=== PATIENT | male | born 1980 | race African-American/Black ===

== ENCOUNTER 2019-03-09 15:04 | Observation (INO) | payer OTHER ==
[~2019-03-09 15:04] MED LIST: Dexamethasone 20 MG/5 ML VIAL ONE; Labetalol HCl 100 MG/20 ML VIAL ONE; Lidocaine 1% PF 5 ML VIAL ONE; Ondansetron PF 4 MG/2 ML Vial ONE; PROPOFOL 200 MG/20 ML VIAL ONE; Rocuronium Bromide 10 MG/ML (10ML VIAL) ONE; Succinylcholine Chloride 20 MG/ML 10 ml SYRINGE FS ONE
[2019-03-09 15:52] LABS: #Eosinphils 0.1 thou/uL (0.0-0.7); #Lymphocytes 1.4 thou/uL (1.20-3.40); #Monocytes 0.7 thou/uL (0.11-0.59); #Neutrophils 3.4 thou/uL (1.40-6.50); %Basophils 0.5 % (0.0-1.0); %Eosinophils 2.1 % (0.0-10.0); %Lymphocytes 24.5 % (21.0-51.0); %Monocytes 11.7 % (0.0-10.0); %Neutrophils 61.3 % (42.0-75.0); Hemoglobin 13.7 g/dL (14.0-18.0); Mean Corpuscular HGB CONC 33.3 g/dL (32.0-36.0); Mean Corpuscular Hemoglobin 30.5 pg (27.0-31.0); Mean Corpuscular Volume 91.8 fL (78.0-98.0); Mean Platelet Volume 7.4 fL (7.4-10.4); Platelet Count 180 thou/uL (130-400); Red Blood Cell (RBC) Count 4.48 mill/uL (4.70-6.10); White Blood Cell (WBC) Count 5.5 thou/uL (4.8-10.8)
--- NOTE | 2019-03-09 15:52 | RAD ---
ABDOMEN ONE VIEW HISTORY: swallowed a nail. Vomiting bright red blood FINDINGS: The bowel gas pattern is unremarkable. There is fecal material in the colon. A screw is seen in the left upper quadrant, in the projection of the stomach.
[2019-03-09 16:14] LABS: ALT (SGPT) 11 U/L (8-55); AST (SGOT) 22 U/L (5-34); Albumin 4.4 g/dL (3.5-5.0); Alkaline Phosphatase 71 U/L (40-150); Anion Gap 12 mmol/L (10-20); BUN (Urea Nitrogen) 11 mg/dL (8.9-20.6); Bilirubin, Total 0.3 mg/dL (0.2-1.2); Calc. Creatinine Clearance 0 mL/min (70-130); Calcium 9.5 mg/dL (7.8-10.44); Carbon Dioxide 27 mmol/L (22-29); Chloride 105 mmol/L (98-107); Estimated GFR-MDRD 90; Globulin 3.5 g/dL (2.4-3.5); Glucose 90 mg/dL (70-105); Potassium 4.8 mmol/L (3.5-5.1); Protein, Total 7.9 g/dL (6.0-8.3); Sodium 139 mmol/L (136-145)
[2019-03-09] MEDS ORDERED: Labetalol HCl 100 MG/20 ML VIAL ONE (18:21)
[2019-03-09] MEDS ORDERED: Ondansetron HCl/PF 4 MG/2 ML Vial IVP PRN (19:09)
[2019-03-09] MEDS ORDERED: Promethazine HCl 25 MG/ML VIAL SLOW IVP PRN (19:09)
[2019-03-09] MEDS ORDERED: Promethazine HCl 25 MG/ML VIAL IM PRN (19:09)
[2019-03-09] MEDS ORDERED: Meperidine HCl/PF 25 MG/ML VIAL SLOW IVP PRN (19:09)
[2019-03-09] MEDS ORDERED: Ondansetron PF 4 MG/2 ML Vial ONE (19:33)
[2019-03-09 20:55] VITALS: BMI 23.8
[2019-03-09] MEDS ORDERED: Morphine 2 MG/ML SYRINGE SLOW IVP SCH (22:00)
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
--- NOTE | 2019-03-10 01:51 | OP ---
DATE OF PROCEDURE: 03/09/2019 PROCEDURE: EGD with extraction of foreign body. INDICATION FOR PROCEDURE: Ingestion of foreign body. DESCRIPTION OF PROCEDURE: After the risks and benefits of the procedure were explained to the patient including risks of bleeding, infection, perforation, reactions to anesthesia, aspiration, and/or pain, informed consent was obtained. The patient was then taken to the endoscopy suite, where deep sedation was administered via general anesthesia and endotracheal tube intubation. Once the patient was adequately sedated and intubated, the standard gastroscope was introduced into the mouth with intubation of the esophagus, stomach, and the proximal small intestines with the findings listed below. The patient tolerated the procedure well with no immediate perioperative complications. Upon conclusion of the procedure, all equipment was removed from the patient and he was transferred to PACU in satisfactory condition. FINDINGS: Esophagus: Normal-appearing mucosa was seen in the proximal, mid, and distal esophagus. There was no evidence of erosions, ulcerations, mass, lesions, or active/recent bleeding. After extraction of the "nail," there was no evidence of laceration of the esophageal mucosa on second-look inspection. Stomach: A moderate amount of retained food was seen within the stomach within the gastric fundus and proximal body thereby limiting visualization of the gastric mucosa. With deployment of a Zavala Net removal of the majority of the food debris was successful and was able to unearth the nail using a small snare after placing a protective martínez over the endoscope. The endoscope was advanced into the stomach with grasping the nail at the head, pulling it next to the scope and with extraction of the endoscope at the GE junction, the martínez employed forward thereby protecting the esophagus upon extraction. The nail was then successfully extracted to the esophagus without subsequent injury. Upon inspection of the nail afterwards, it was consistent of primarily a copper wire as opposed to a true nail itself. Reinspection of the stomach on re-intubation showed 3-4 areas of small lacerations with blood clot overlying, but did not exhibit any active bleeding. Otherwise, normal mucosa was seen in the gastric cardia, greater curvature, antrum, and incisura. There was no evidence of ulcerations or mass lesions. Normal-appearing mucosa was seen in both the duodenal bulb and second portion of the duodenum. There was no evidence of erosions, ulcerations, mass, lesions, or active/recent bleeding. IMPRESSION: 1. A cise-vg-loexgjsy amount of retained food seen within the gastric fundus. It was successfully removed with Zavala Net. 2. Successful extraction of a copper wire "nail" via snare and protective martínez. 3. Two to three areas of laceration of the gastric mucosa with no active bleeding, but likely a source of recent hematemesis. RECOMMENDATIONS: 1. We would admit to the hospital overnight for observation for any further bouts of hematemesis and/or GI bleeding. 2. We would continue to trend H and H and transfuse as necessary to maintain an H and H of 7/21. 3. Continue to monitor clinically for signs of active GI bleeding. 4. We would place the patient on pantoprazole 40 mg daily as a protective measure for healing of the stomach given the laceration seen on upper exam today. We will place the patient on a clear liquid diet for now and advance diet as tolerated in the morning. 1. We would strongly encourage the patient not to ingest any additional foreign bodies. 2. We will continue to follow. If the patient's H and H are stable tomorrow and if he does not exhibit any further episodes of hematemesis, he could then be discharged back to longterm. Please call with any additional questions. Job ID: [id number]
[2019-03-10] MEDS ORDERED: Morphine 2 MG/ML SYRINGE SLOW IVP SCH (04:15)
[2019-03-10 08:42] LABS: #Eosinphils 0.1 thou/uL (0.0-0.7); #Lymphocytes 1.6 thou/uL (1.20-3.40); #Monocytes 0.6 thou/uL (0.11-0.59); #Neutrophils 3.1 thou/uL (1.40-6.50); %Basophils 0.4 % (0.0-1.0); %Eosinophils 1.1 % (0.0-10.0); %Lymphocytes 29.7 % (21.0-51.0); %Monocytes 11.8 % (0.0-10.0); Hemoglobin 13.9 g/dL (14.0-18.0); Mean Corpuscular HGB CONC 33.3 g/dL (32.0-36.0); Mean Corpuscular Hemoglobin 30.5 pg (27.0-31.0); Mean Corpuscular Volume 91.6 fL (78.0-98.0); Mean Platelet Volume 7.5 fL (7.4-10.4); Platelet Count 177 thou/uL (130-400); Red Blood Cell (RBC) Count 4.56 mill/uL (4.70-6.10); White Blood Cell (WBC) Count 5.4 thou/uL (4.8-10.8)
[2019-03-10] MEDS ORDERED: risperiDONE 1 MG TAB PO SCH (09:00)
[2019-03-10] MEDS ORDERED: Spironolactone 25 MG TAB PO SCH (09:00)
[2019-03-10] MEDS ORDERED: Amlodipine 10 MG TAB PO SCH (09:00)
[2019-03-10] MEDS ORDERED: Morphine 2 MG/ML SYRINGE SLOW IVP PRN (09:22)
[2019-03-10 11:05] VITALS: BP 133/91; TEMP 99.1
--- NOTE | 2019-03-10 11:43 | PDOC.EVN ---
Event Note - Event Note Event Note: Consult note dictation #[id number] Patient is medically cleared for discharge, medicine team respectfully signing off, please recall if needed.
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
[2019-03-10] MEDS ORDERED: Prazosin HCl 1 MG CAP PO SCH (21:00)
[2019-03-10] MEDS ORDERED: diphenhydrAMINE 50 MG CAP PO SCH (21:00)
[2019-03-10] MEDS ORDERED: Emtricitabine/Tenofovir 200-300 MG TAB PO SCH (21:00)
== END 2019-03-10 14:16 ==
LOC: ERS 15:04 → SURG B 20:09
PROVIDERS: ADMIT Internal Medicine; ATTEND Internal Medicine
PROC: 0DC58ZZ Extirpation of Matter from Esophagus, Via Natural or Artificial Opening Endoscopic (ICD-10-PCS; principal; 2019-03-10)
DX: T18.198A Other foreign object in esophagus causing other injury, initial encounter (principal); K92.0 Hematemesis; K21.9 Gastro-esophageal reflux disease without esophagitis; I10 Essential (primary) hypertension; F20.9 Schizophrenia, unspecified; F31.9 Bipolar disorder, unspecified; Z88.8 Allergy status to other drugs, medicaments and biological substances
CPT/HCPCS: 36415; 74018; 80053; 82274; 85025; 86850; 86900; 86901; 96374; 96376; G0378; J1100; J2001; J2270; J2405; J2704

== ENCOUNTER 2019-03-13 15:52 | Inpatient (IN) | payer OTHER ==
--- NOTE | 2019-03-13 17:20 | RAD ---
EXAM: XR Abdomen 2 View/1 View Cxr PROVIDED CLINICAL HISTORY: Nausea and vomiting. Patient swallowed scrap metal/screws. COMPARISON: Abdominal radiograph on 03/09/2019. FINDINGS: The cardiac silhouette and pulmonary vasculature are within normal limits. The lungs are clear. No free intraperitoneal air is seen beneath the hemidiaphragms. Previously seen linear metallic forei gn body (screw) overlying the mid abdomen is again seen. However, there is now a new rectangular shaped metallic foreign body also overlying the midline of the abdomen. There is questionable radio o paque suture material overlying the left upper quadrant. A sopps-te-hbunrfbt amount of retained fecal material is seen throughout the colon. Bowel gas pattern is otherwise nonspecific. No other interval change. IMPRESSION: Metallic foreign bodies overlying the mid abdomen one of which was also present on prior study on 02/24.
[2019-03-13] MEDS ORDERED: Morphine 4 MG/ML VIAL ONE (17:28)
[2019-03-13] MEDS ORDERED: Ondansetron ODT 4 MG TAB ONE (17:28)
--- NOTE | 2019-03-13 17:51 | CT ---
CT Abdomen Pelvis WO Con 03/13/2019 5:25 PM HISTORY: Abdominal pain. Patient swallowed metallic foreign body. COMPARISON: Radiographs abdomen on 03/13/2019. Technique: Multiple contiguous axial CT images are obtained through the abdomen and pelvis without IV contrast. Coronal reformats are provided. FINDINGS: This examination is limited for the evaluation of solid organs and vascular structures due to the lac k of intravenous contrast. Lower Chest: Mild patchy parenchymal density seen at the right lung base worrisome for developing are a of pneumonitis. Abdomen: Liver: within normal limits. Gallbladder: Within normal limits for CT imaging. Pancreas: within normal limits. Spleen: within normal limits. Adrenals: within normal limits. Kidneys: No renal calculi are visualized, and there is no evidence of hydronephrosis. Ureters: No ureteral calculus is seen.. Pelvis: Urinary bladder: within normal limits. Reproductive Organs: No pelvic masses. Lymph Nodes: No enlarged lymph nodes. Bowel: There are postsurgical changes of the colon as well as loops of small bowel within the abdomen . A moderate amount of retained fecal material is seen in the colon. There are 2 metallic foreign bodies in the third portion of the duodenum one of which appears to represent a screw and second repr esenting a rectangular metallic foreign body. Peritoneum: No free fluid, free air, or fluid collection. Retroperitoneum: within normal limits. Vessels: Abdominal aorta is normal in caliber.. Abdominal Wall: within normal limits. Bones: within normal limits. IMPRESSION: 1. Two metallic foreign bodies located in the third portion of the duodenum. No free intraperitoneal gas or free fluid is seen in the abdomen or pelvis. 2. Postsurgical changes of loops of bowel within the abdomen.
[2019-03-13 18:08] LABS: #Eosinphils 0.1 thou/uL (0.0-0.7); #Lymphocytes 1.4 thou/uL (1.20-3.40); #Monocytes 0.7 thou/uL (0.11-0.59); %Basophils 0.7 % (0.0-1.0); %Eosinophils 1.6 % (0.0-10.0); %Lymphocytes 27.8 % (21.0-51.0); %Monocytes 12.5 % (0.0-10.0); %Neutrophils 57.4 % (42.0-75.0); Hemoglobin 12.5 g/dL (14.0-18.0); Mean Corpuscular HGB CONC 32.7 g/dL (32.0-36.0); Mean Corpuscular Volume 91.8 fL (78.0-98.0); Mean Platelet Volume 7.5 fL (7.4-10.4); Platelet Count 155 thou/uL (130-400); Red Blood Cell (RBC) Count 4.16 mill/uL (4.70-6.10); White Blood Cell (WBC) Count 5.2 thou/uL (4.8-10.8)
[2019-03-13 18:29] LABS: ALT (SGPT) 11 U/L (8-55); AST (SGOT) 20 U/L (5-34); Albumin 4.4 g/dL (3.5-5.0); Alkaline Phosphatase 68 U/L (40-150); Anion Gap 10 mmol/L (10-20); BUN (Urea Nitrogen) 12 mg/dL (8.9-20.6); Bilirubin, Total 0.4 mg/dL (0.2-1.2); Calc. Creatinine Clearance 0 mL/min (70-130); Calcium 9.5 mg/dL (7.8-10.44); Carbon Dioxide 26 mmol/L (22-29); Chloride 105 mmol/L (98-107); Estimated GFR-MDRD Greater than 90; Globulin 3.1 g/dL (2.4-3.5); Glucose 86 mg/dL (70-105); Lipase 46 U/L (8-78); Potassium 4.2 mmol/L (3.5-5.1); Protein, Total 7.5 g/dL (6.0-8.3); Sodium 137 mmol/L (136-145)
[2019-03-13] MEDS ORDERED: Pantoprazole 40 MG VIAL ONE (19:55)
[2019-03-13 21:53] VITALS: BMI 26.2
[2019-03-13] MEDS ORDERED: Sodium Chloride 0.9% (PF) 10 ML VIAL FS PRN (23:02)
[2019-03-13] MEDS: Lactated Ringer's 1,000 ML IV SCH (23:48)
[2019-03-13] MEDS: Ondansetron PF 4 MG/2 ML Vial IVP PRN (23:52)
[2019-03-13] MEDS: Morphine 2 MG/ML SYRINGE SLOW IVP PRN (23:52)
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
[2019-03-14 05:50] LABS: #Eosinphils 0.1 thou/uL (0.0-0.7); #Monocytes 0.6 thou/uL (0.11-0.59); #Neutrophils 3.2 thou/uL (1.40-6.50); %Basophils 0.6 % (0.0-1.0); %Eosinophils 1.8 % (0.0-10.0); %Lymphocytes 20.5 % (21.0-51.0); %Monocytes 11.2 % (0.0-10.0); Hemoglobin 12.9 g/dL (14.0-18.0); Mean Corpuscular HGB CONC 33.2 g/dL (32.0-36.0); Mean Corpuscular Hemoglobin 30.2 pg (27.0-31.0); Mean Corpuscular Volume 91.1 fL (78.0-98.0); Mean Platelet Volume 7.9 fL (7.4-10.4); Platelet Count 165 thou/uL (130-400); RBC Distribution Width 11.9 % (11.5-14.5); Red Blood Cell (RBC) Count 4.25 mill/uL (4.70-6.10); White Blood Cell (WBC) Count 4.9 thou/uL (4.8-10.8)
[2019-03-14 06:13] LABS: Anion Gap 12 mmol/L (10-20); BUN (Urea Nitrogen) 11 mg/dL (8.9-20.6); Calc. Creatinine Clearance 122 mL/min (70-130); Calcium 9.2 mg/dL (7.8-10.44); Carbon Dioxide 24 mmol/L (22-29); Chloride 105 mmol/L (98-107); Estimated GFR-MDRD Greater than 90; Glucose 78 mg/dL (70-105); Potassium 4.1 mmol/L (3.5-5.1); Sodium 137 mmol/L (136-145)
[2019-03-14] MEDS ORDERED: hydrALAZINE 20 MG/ML VIAL SLOW IVP PRN (07:46)
[2019-03-14] MEDS: Amlodipine 5 MG TAB PO SCH ×2 (08:33→10:37)
[2019-03-14] MEDS: risperiDONE 1 MG TAB PO SCH ×2 (08:33→10:37)
[2019-03-14] MEDS: Morphine 2 MG/ML SYRINGE SLOW IVP PRN ×2 (08:36→15:18)
[2019-03-14] MEDS: Pantoprazole 40 MG VIAL IVP SCH (08:38)
--- NOTE | 2019-03-14 08:50 | RAD ---
RADIOGRAPH ABDOMEN 1 VIEW: DATE: 03/14/2019. TIME: 8:03 a.m. HISTORY: Followup swallowed foreign bodies in a 39-year-old male. COMPARISON: 03/13/2019, 5:07 p.m. FINDINGS: The rectangular foreign body is now slightly to the right of midline in the upper abdomen. Inferior to that, the screw or nail is also slightly to the right of midline at the mid abdomen. Bowel gas pa ttern is nonobstructive. They were in the small intestine yesterday, as demonstrated on the subseque nt CT. It is not possible to determine whether they are still in the small intestine or have progres sed to the transverse colon on today's single KUB. IMPRESSION: Interval movement of the 2 swallowed metallic foreign bodies. POS: TPC
[2019-03-14] MEDS: Lactated Ringer's 1,000 ML IV SCH (13:32)
[2019-03-14] MEDS: Ondansetron PF 4 MG/2 ML Vial IVP PRN (13:32)
--- NOTE | 2019-03-14 16:30 | PDOC.PN ---
- Subjective Encounter Start Date: 03/14/19 Encounter Start Time: 16:27 Mr. Ambrocio was seen today in follow-up of ingestion of foreign object. He admits to some abdominal pain which he says is diffuse. He denies any blood in the stool, no hematemesis since he arrived on the floor. - Objective MAR Reviewed: Yes Vital Signs & Weight: Vital Signs (12 hours) Temp Pulse Resp BP Pulse Ox 03/14/19 11:36 97.8 F 78 14 128/87 97 03/14/19 10:37 62 03/14/19 07:55 97.8 F 62 14 135/86 98 Weight Weight 172 lb 12.8 oz Result Diagrams: 03/14/19 04:54 03/14/19 04:54 Phys Exam - Physical Examination HEENT: PERRLA Respiratory: no wheezing, no rales, no rhonchi, clear to auscultation bilateral Cardiovascular: RRR, no significant murmur, no rub Gastrointestinal: soft, non-tender, no distention, positive bowel sounds Musculoskeletal: no edema, pulses present Dx/Plan (1) Swallowed foreign body Code(s): T18.9XXA - FOREIGN BODY OF ALIMENTARY TRACT, PART UNSP, INIT ENCNTR Status: Acute (2) HIV (human immunodeficiency virus infection) Code(s): B20 - HUMAN IMMUNODEFICIENCY VIRUS [HIV] DISEASE Status: Chronic (3) Bipolar disorder Code(s): F31.9 - BIPOLAR DISORDER, UNSPECIFIED Status: Chronic - Plan * Foreign Body ingestion - He has been seen by GI, and the objects had passed beyond the point of reaching it with a endoscope * Will check serial KUB's and hope it will pass spontaneously * If there is evidence of perforation- will consult General Surgery.
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
[2019-03-14] MEDS ORDERED: Morphine 2 MG/ML SYRINGE ONE (22:28)
[2019-03-15] MEDS: Emtricitabine/Tenofovir 200-300 MG TAB PO SCH ×2 (09:30→22:08)
[2019-03-15] MEDS: diphenhydrAMINE 50 MG CAP PO SCH ×2 (09:30→22:08)
[2019-03-15] MEDS: Prazosin HCl 1 MG CAP PO SCH ×2 (09:31→22:08)
[2019-03-15] MEDS: Pantoprazole 40 MG VIAL IVP SCH ×3 (09:31→22:08)
[2019-03-15] MEDS: Amlodipine 5 MG TAB PO SCH (09:32)
[2019-03-15] MEDS: Lactated Ringer's 1,000 ML IV SCH ×2 (09:32→16:31)
[2019-03-15] MEDS: risperiDONE 1 MG TAB PO SCH (09:33)
[2019-03-15 10:25] LABS: %Eosinophils 2.7 % (0.0-10.0); %Lymphocytes 32.8 % (21.0-51.0); %Monocytes 10.6 % (0.0-10.0); %Neutrophils 52.8 % (42.0-75.0); Hemoglobin 12.9 g/dL (14.0-18.0); Mean Corpuscular HGB CONC 32.4 g/dL (32.0-36.0); Mean Corpuscular Hemoglobin 29.9 pg (27.0-31.0); Mean Corpuscular Volume 92.2 fL (78.0-98.0); Mean Platelet Volume 8.1 fL (7.4-10.4); Platelet Count 164 thou/uL (130-400); Red Blood Cell (RBC) Count 4.32 mill/uL (4.70-6.10)
[2019-03-15 10:26] LABS: #Eosinphils 0.1 thou/uL (0.0-0.7); #Lymphocytes 1.3 thou/uL (1.20-3.40); #Monocytes 0.4 thou/uL (0.11-0.59); #Neutrophils 2.1 thou/uL (1.40-6.50)
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
--- NOTE | 2019-03-15 11:52 | RAD ---
KUB: HISTORY: Swallowed foreign bodies. COMPARISON: 03/14/2019 FINDINGS: An anterior view of the abdomen shows a nonspecific, nonobstructive bowel gas pattern. Two radiopaqu e foreign bodies are seen in the right aspect of the abdomen. These have moved when compared to the prior examination. IMPRESSION: Persistent radiopaque foreign bodies in the abdomen without evidence of obstruction. POS: TPC
--- NOTE | 2019-03-15 12:06 | PDOC.PN ---
- Subjective Encounter Start Date: 03/15/19 Encounter Start Time: 12:04 Mr. Ambrocio was seen today in follow-up of foreign body ingestion. He admits tosome abdominal discomfort. He denies any hematemesis, and denies blood in the stool or melena. - Objective MAR Reviewed: Yes Vital Signs & Weight: Vital Signs (12 hours) Temp Pulse Resp BP Pulse Ox 03/15/19 11:38 97.6 F 68 16 117/73 97 03/15/19 09:32 70 03/15/19 08:00 98.1 F 59 L 16 115/74 98 Weight Weight 172 lb 12.8 oz I&O: 03/14/19 03/15/19 03/16/19 06:59 06:59 06:59 Intake Total 900 Output Total 850 600 Balance 50 -600 Result Diagrams: 03/15/19 04:33 03/14/19 04:54 Phys Exam - Physical Examination HEENT: PERRLA Respiratory: no wheezing, no rales, no rhonchi, clear to auscultation bilateral Cardiovascular: RRR, no significant murmur, no rub Gastrointestinal: soft, non-tender, no distention, positive bowel sounds Musculoskeletal: no edema, pulses present Dx/Plan (1) Swallowed foreign body Code(s): T18.9XXA - FOREIGN BODY OF ALIMENTARY TRACT, PART UNSP, INIT ENCNTR Status: Acute (2) HIV (human immunodeficiency virus infection) Code(s): B20 - HUMAN IMMUNODEFICIENCY VIRUS [HIV] DISEASE Status: Chronic (3) Bipolar disorder Code(s): F31.9 - BIPOLAR DISORDER, UNSPECIFIED Status: Chronic (4) Hypertension Code(s): I10 - ESSENTIAL (PRIMARY) HYPERTENSION Status: Chronic - Plan * Foreign Body ingestion- continue to observe. Hopefully this will pass without need for intervention * Continue Protonix * HIV- stable continue TAPIA. * HTN- blood pressure is controlled * Bipolar Disorder- stable- continue his home medications
[2019-03-15] MEDS: HYDROcodone/Acetaminophen 5/325 mg Tablet PO PRN (14:08)
[2019-03-15] MEDS ORDERED: diphenhydrAMINE 25 MG CAP PO PRN (15:03)
[2019-03-15 18:32] LABS: Anion Gap 11 mmol/L (10-20); BUN (Urea Nitrogen) 10 mg/dL (8.9-20.6); Calc. Creatinine Clearance 125 mL/min (70-130); Calcium 8.9 mg/dL (7.8-10.44); Carbon Dioxide 24 mmol/L (22-29); Chloride 106 mmol/L (98-107); Estimated GFR-MDRD Greater than 90; Glucose 86 mg/dL (70-105); Potassium 3.9 mmol/L (3.5-5.1); Sodium 137 mmol/L (136-145)
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
[2019-03-16] MEDS: HYDROcodone/Acetaminophen 5/325 mg Tablet PO PRN ×2 (00:12→16:16)
[2019-03-16 05:15] LABS: Eosinophils 4 % (0-10); Hemoglobin 12.8 g/dL (14.0-18.0); Lymphocytes 31 % (21-51); MDiff Complete? YES; Mean Corpuscular HGB CONC 32.8 g/dL (32.0-36.0); Mean Corpuscular Hemoglobin 30.3 pg (27.0-31.0); Mean Corpuscular Volume 92.4 fL (78.0-98.0); Mean Platelet Volume 7.6 fL (7.4-10.4); Monocytes 8 % (0-10); Neutrophil 53 % (42-75); Platelet Count 155 thou/uL (130-400); Reactive Lymphocytes 4 % (0-10); Red Blood Cell (RBC) Count 4.21 mill/uL (4.70-6.10); White Blood Cell (WBC) Count 4.4 thou/uL (4.8-10.8)
--- NOTE | 2019-03-16 08:16 | RAD ---
EXAM: Single view of the abdomen HISTORY: Ingested foreign bodies COMPARISON: 03/15/2019 FINDINGS: Single view of the abdomen shows a nonspecific, nonobstructive bowel gas pattern. 2 foreign bodies are again seen in the abdomen. The sharper object is still in the right lower quadrant of the abdomen. The rectangular object is now in the pelvis. No suspicious calcifications are seen. Th e bones are unremarkable. IMPRESSION: Persistent radiopaque foreign bodies in the abdomen without evidence of obstruction.
[2019-03-16] MEDS: risperiDONE 1 MG TAB PO SCH (08:39)
[2019-03-16] MEDS: Pantoprazole 40 MG VIAL IVP SCH ×2 (08:39→20:19)
[2019-03-16] MEDS: Amlodipine 5 MG TAB PO SCH (08:39)
--- NOTE | 2019-03-16 16:14 | PDOC.PN ---
- Subjective Encounter Start Date: 03/16/19 Encounter Start Time: 12:05 Mr. Ambrocio was seen today in follow-up of ingestion of a foreign body. He continues to note some diffuse abdominal pain. He has not had nausea , vomiting or diarrhea. - Objective MAR Reviewed: Yes Vital Signs & Weight: Vital Signs (12 hours) Temp Pulse Resp BP BP Pulse Ox 03/16/19 15:46 98.5 F 66 16 118/80 97 03/16/19 11:45 97.9 F 84 18 122/85 97 03/16/19 08:39 73 03/16/19 07:32 97.4 F L 73 16 132/93 H 96 03/16/19 04:17 68 18 118/61 97 Weight Weight 172 lb 12.8 oz I&O: 03/15/19 03/16/19 03/17/19 06:59 06:59 06:59 Intake Total 900 600 Output Total 850 1800 1000 Balance 50 -1200 -1000 Result Diagrams: 03/16/19 04:26 03/15/19 04:20 Phys Exam - Physical Examination HEENT: PERRLA Respiratory: no wheezing, no rales, no rhonchi, clear to auscultation bilateral Cardiovascular: RRR, no significant murmur, no rub Gastrointestinal: soft, non-tender, no distention, positive bowel sounds Musculoskeletal: no edema, pulses present Dx/Plan (1) Swallowed foreign body Code(s): T18.9XXA - FOREIGN BODY OF ALIMENTARY TRACT, PART UNSP, INIT ENCNTR Status: Acute (2) HIV (human immunodeficiency virus infection) Code(s): B20 - HUMAN IMMUNODEFICIENCY VIRUS [HIV] DISEASE Status: Chronic (3) Bipolar disorder Code(s): F31.9 - BIPOLAR DISORDER, UNSPECIFIED Status: Chronic (4) Hypertension Code(s): I10 - ESSENTIAL (PRIMARY) HYPERTENSION Status: Chronic - Plan * Foreign Body ingestion- patient ingested a piece of copper wire, fashioned into a make-shift screw, as well as a metal plate. * Objects were not retrievable via Endoscopy * Hopefully these will pass spontaneously. Watch for signs of perforation, and GI bleed with drop in H&H- if this occurs then consult Surgery * HTN- blood pressure is stable * HIV- stable
[2019-03-16] MEDS: Ondansetron PF 4 MG/2 ML Vial IVP PRN (16:57)
[2019-03-16] MEDS: Morphine 2 MG/ML SYRINGE SLOW IVP PRN ×2 (17:02→22:56)
--- NOTE | 2019-03-16 17:25 | PDOC.EVN ---
Event Note - Event Note Event Note: Called to evaluate patient due to vomiting blood. He notes worsening abdominal pain. Abdomen is firm, but not rigid. bowel sounds are present. Objects appear too low to cause hematesis. Will check a KUB flat and upright, and H&H, and notify GI. Object appear too low to cause hematesis.
--- NOTE | 2019-03-16 18:05 | RAD ---
XR Abdomen 2 View/1 View Cxr History: Vomiting blood. Ingested foreign object. Comparison: Radiograph same day Findings: Radiopaque foreign objects are both projecting over the right lower quadrant of the abdomen . Moderate colon stool within the transverse colon. Moderate degenerative changes of both hips. Lungs are clear aside from left apical scarring. Impression: Radiopaque foreign object project over the right lower quadrant of the abdomen.
[2019-03-16 18:40] LABS: Hemoglobin 13.6 g/dL (14.0-18.0); Platelet Count 161 thou/uL (130-400)
--- NOTE | 2019-03-16 20:11 | PRG ---
DATE OF SERVICE: 03/16/2019 SUBJECTIVE: I was asked to see Mr. Ambrocio by Dr. Sharma around 0530 hours. Apparently, they report he threw up some blood. I talked with the nurse. She said that he threw up some small clots. He denies any retching or vomiting before that. He states he does not feel that well. He reports not been eating, but the nurse reports he has been eating well. He had one bowel movement today. Medications are notable for Norvasc, Bentyl, Truvada, , hydrocodone, morphine, Zofran, Protonix, mirtazapine, Risperdal. OBJECTIVE: VITAL SIGNS: Temperature is 98, pulse 86, blood pressure 118/80. LUNGS: Clear. HEART: Regular rate and rhythm without murmurs. ABDOMEN: Soft, slightly protuberant. There is no rebound. There is no guarding. Bowel sounds are positive. EXTREMITIES: No clubbing, cyanosis, or edema. LABORATORY DATA: White count this morning is 4.4, hemoglobin of 12.8, platelet count 155. At 1820 hours, his hemoglobin is 13.6, platelet count 161. X-ray was repeated to make sure he did not ingest any other foreign bodies. Radiologist felt the foreign body projections were over the right lower quadrant of the abdomen. I reviewed these films. They are probably in the cecal area or distal small bowel, possibly even the sigmoid colon. ASSESSMENT: 1. Self-limited hematemesis, the etiology is unclear. His hemoglobin is stable. It is unclear if he is self-induced vomiting and he has coughed, so he did not like he gagged himself. The nurses and the guards reported that he was not really vomiting before. He is immediately stable. He is on a PPI. 2. Foreign body ingestion. There are 2 objects, may be sharp. They are distal in either small bowel or cecum. Surgeries have been following and signed off. RECOMMENDATIONS: He does not seem to have any acute bleeding or acute abdomen. I would add fiber to his diet and MiraLAX and see if we can get his bowels really better and see if he is going to pass the foreign bodies. If they seem to get into the colon, then he can go back to intermediate, will be monitored with films there. If there are any further signs of hematemesis, he may need NG tube placement. Job ID: [id number]
[2019-03-16] MEDS: Polyethylene Glycol 3350 17 GM Packet PO SCH (20:17)
[2019-03-16] MEDS: diphenhydrAMINE 50 MG CAP PO SCH (20:18)
[2019-03-16] MEDS: Emtricitabine/Tenofovir 200-300 MG TAB PO SCH (20:19)
[2019-03-16] MEDS: Prazosin HCl 1 MG CAP PO SCH (20:19)
[2019-03-17] MEDS: Morphine 2 MG/ML SYRINGE SLOW IVP PRN ×4 (05:04→23:07)
[2019-03-17 05:25] LABS: Band 2 % (5-11); Eosinophils 4 % (0-10); Lymphocytes 29 % (21-51); MDiff Complete? YES; Mean Corpuscular HGB CONC 33.1 g/dL (32.0-36.0); Mean Corpuscular Hemoglobin 30.6 pg (27.0-31.0); Mean Corpuscular Volume 92.7 fL (78.0-98.0); Mean Platelet Volume 7.6 fL (7.4-10.4); Monocytes 11 % (0-10); Neutrophil 50 % (42-75); Platelet Count 151 thou/uL (130-400); Platelet Morphology Comment Appears Adequate; Reactive Lymphocytes 4 % (0-10); Red Blood Cell (RBC) Count 4.23 mill/uL (4.70-6.10)
[2019-03-17] MEDS: risperiDONE 1 MG TAB PO SCH (08:41)
[2019-03-17] MEDS: Amlodipine 5 MG TAB PO SCH (08:41)
[2019-03-17] MEDS: Polyethylene Glycol 3350 17 GM Packet PO SCH ×2 (08:42→20:59)
[2019-03-17] MEDS: Pantoprazole 40 MG VIAL IVP SCH (08:42)
[2019-03-17] MEDS: Citrucel 500 MG TAB PO SCH (08:42)
--- NOTE | 2019-03-17 09:35 | PDOC.PN ---
- Subjective Encounter Start Date: 03/17/19 Encounter Start Time: 09:30 Subjective: f/u s/p intentional ingestion of metallic objects. Conservative mgmt -: awaiting spontaneous passage. Small amount of hematemesis day before. - Objective MAR Reviewed: Yes Vital Signs & Weight: Vital Signs (12 hours) Temp Pulse Resp BP Pulse Ox 03/17/19 08:41 65 03/17/19 07:30 97.9 F 65 12 116/75 97 03/17/19 04:08 98.2 F 89 15 104/71 98 03/16/19 23:25 97.9 F 80 16 118/74 96 Weight Weight 176 lb 1.6 oz I&O: 03/16/19 03/17/19 03/18/19 06:59 06:59 06:59 Intake Total 600 1392 Output Total 1800 1780 Balance -1200 -388 Result Diagrams: 03/17/19 04:25 03/15/19 04:20 Additional Labs: Laboratory Tests 03/13/19 03/14/19 03/15/19 17:59 04:54 04:33 Hgb 12.5 L 12.9 L 12.9 L 03/16/19 03/16/19 04:26 18:20 Hgb 12.8 L 13.6 L Radiology Reviewed by me: Yes (KUB - 2 metallic objects noted RLQ) EKG Reviewed by me: Yes (Tele - SR) Phys Exam - Physical Examination Constitutional: NAD HEENT: PERRLA, sclera anicteric, oral pharynx no lesions Neck: no nodes, no JVD, supple, full ROM Respiratory: no wheezing, no rales, no rhonchi, clear to auscultation bilateral S1, S2 Cardiovascular: RRR, no significant murmur, no rub, gallop mild TTP in R/LLQ Gastrointestinal: soft, no distention, positive bowel sounds Musculoskeletal: no edema, pulses present Neurological: normal sensation, moves all 4 limbs Psychiatric: A&O x 3 Skin: normal turgor, cap refill <2 seconds Dx/Plan (1) Swallowed foreign body Code(s): T18.9XXA - FOREIGN BODY OF ALIMENTARY TRACT, PART UNSP, INIT ENCNTR Status: Acute Comment: Conservative mgmt, awaiting spontaneous passage, serial abd radiographs (2) Hematemesis Code(s): K92.0 - HEMATEMESIS Status: Acute Comment: Transient, ? 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
[2019-03-17] MEDS ORDERED: Docusate 100 MG CAP PO SCH (11:00)
--- NOTE | 2019-03-17 12:10 | PRG ---
DATE OF SERVICE: 03/17/2019 SUBJECTIVE: Mr. Ambrocio has no further hematemesis. He complains of some lower abdominal discomfort. He is eating. He is getting fiber and MiraLAX b.i.d. He had a bowel movement last night . OBJECTIVE: VITAL SIGNS: Temperature is 98.7, pulse 65, and blood pressure 116/75. ABDOMEN: Soft and nontender. There is no rebound or guarding. LABORATORY DATA: White count 5, hemoglobin 13.0 and stable, and platelets 151. Basic metabolic profile are normal. IMAGING DATA: Plain films, none today. ASSESSMENT: 1. Ingestion of foreign body. In yesterday's films, they seemed to be in the low abdomen. It is unclear if they are in small bowel or colon. He has a benign abdomen. No evidence of peritoneal signs. 2. He had an episode of reported hematemesis yesterday, but there has been no drop in hemoglobin and the foreign bodies that are noted are no where near the stomach to cause anything along this. He has no abdominal pain or dysphagia or odynophagia. His vital signs have been stable. RECOMMENDATIONS: I would check a plain film tomorrow. If things still failing to progress, I asked General Surgery for their opinion as they have been following from [facility], and if they do not feel like he needs surgery, then he could go back to the C with serial films and high-fiber diet and laxatives. I think if he did not pass something in a week, then he may have to come back for surgical removal. No endoscopy is indicated at this time. We will follow from a distance. Job ID: [id number]
[2019-03-17] MEDS: Ondansetron PF 4 MG/2 ML Vial IVP PRN (17:10)
[2019-03-17] MEDS: Docusate 100 MG CAP PO SCH (20:58)
[2019-03-17] MEDS: Emtricitabine/Tenofovir 200-300 MG TAB PO SCH (20:58)
[2019-03-17] MEDS: Prazosin HCl 1 MG CAP PO SCH (20:59)
[2019-03-17] MEDS: diphenhydrAMINE 50 MG CAP PO SCH (20:59)
[2019-03-18] MEDS: Morphine 2 MG/ML SYRINGE SLOW IVP PRN ×2 (05:02→11:07)
[2019-03-18 05:27] LABS: Hemoglobin 13.4 g/dL (14.0-18.0); Platelet Count 146 thou/uL (130-400)
[2019-03-18] MEDS: Ondansetron PF 4 MG/2 ML Vial IVP PRN (09:26)
--- NOTE | 2019-03-18 10:38 | RAD ---
EXAM: XR Abdomen 1 View/KUB PROVIDED CLINICAL HISTORY: Swallowed a foreign body. Follow-up evaluation. COMPARISON: 03/16/2019 FINDINGS: The previously described metallic foreign bodies are again seen. One of the metallic foreign bodies (screw) again overlies the right lower quadrant in the region of the ascending colon. There has been interval migration of the rectangular metallic foreign body which is now also seen overlying the right lower quadrant and overlying the ascending colon adjacent to the second metallic foreign body (screw). A small to moderate amount of retained fecal material seen in the colon. Bowel gas pattern is nonspec ific. Visualized lung bases are clear. No free intraperitoneal gas is seen beneath the hemidiaphragms on the upright image. IMPRESSION: 2 metallic foreign bodies are again seen each which overlies the right lower quadrant and region of t he ascending colon.
[2019-03-18] MEDS: Amlodipine 5 MG TAB PO SCH (11:03)
[2019-03-18] MEDS: Polyethylene Glycol 3350 17 GM Packet PO SCH ×2 (11:03→20:54)
[2019-03-18] MEDS: Docusate 100 MG CAP PO SCH ×2 (11:03→20:53)
[2019-03-18] MEDS: Citrucel 500 MG TAB PO SCH (11:03)
[2019-03-18] MEDS: risperiDONE 1 MG TAB PO SCH (11:03)
--- NOTE | 2019-03-18 11:52 | PDOC.PN ---
- Subjective Encounter Start Date: 03/18/19 Encounter Start Time: 11:40 Subjective: f/u after metallic foreign body ingestion with conservative mgmt -: with laxatives, stool softeners without passage of objects currently. -: c/o abd pain, spit up small amount of blood this am. - Objective MAR Reviewed: Yes Vital Signs & Weight: Vital Signs (12 hours) Temp Pulse Resp BP BP Pulse Ox 03/18/19 11:03 74 125/88 03/18/19 08:00 98.1 F 74 18 125/88 96 Weight Weight 176 lb 1.6 oz I&O: 03/17/19 03/18/19 03/19/19 06:59 06:59 06:59 Intake Total 1392 480 Output Total 1780 600 Balance -388 -120 Result Diagrams: 03/18/19 05:11 03/15/19 04:20 Additional Labs: Laboratory Tests 03/13/19 03/14/19 03/15/19 17:59 04:54 04:33 Hgb 12.5 L 12.9 L 12.9 L 03/16/19 03/16/19 04:26 18:20 Hgb 12.8 L 13.6 L Radiology Reviewed by me: Yes (ABD x-ray - 2 metallic objects in close proximity RLQ) Phys Exam - Physical Examination Constitutional: NAD HEENT: PERRLA, sclera anicteric, oral pharynx no lesions Neck: no nodes, no JVD, supple, full ROM Respiratory: no wheezing, no rales, no rhonchi, clear to auscultation bilateral S1, S2 Cardiovascular: RRR, no significant murmur, no rub, gallop firm, TTP in RLQ Gastrointestinal: no distention, positive bowel sounds Musculoskeletal: no edema, pulses present Neurological: normal sensation, moves all 4 limbs Psychiatric: A&O x 3 Skin: normal turgor, cap refill <2 seconds Dx/Plan (1) Swallowed foreign body Code(s): T18.9XXA - FOREIGN BODY OF ALIMENTARY TRACT, PART UNSP, INIT ENCNTR Status: Acute Comment: Plan for surgical removal today, NPO, pain control (2) Hematemesis Code(s): K92.0 - HEMATEMESIS Status: Acute Comment: Transient, ? relation to current foreign objects given that the metallic objects are distal in the RLQ , H/H stable (3) Bipolar disorder Code(s): F31.9 - BIPOLAR DISORDER, UNSPECIFIED Status: Chronic (4) HIV (human immunodeficiency virus infection) Code(s): B20 - HUMAN IMMUNODEFICIENCY VIRUS [HIV] DISEASE Status: Chronic Comment: Continue anti-retroviral therapy (5) Hypertension Code(s): I10 - ESSENTIAL (PRIMARY) HYPERTENSION Status: Chronic Qualifiers: Hypertension type: essential hypertension Qualified Code(s): I10 - Essential (primary) hypertension Comment: Continue outpt BP regimen - Plan DVT proph w/SCDs Plan for surgical removal of metallic foreign objects -: NPO -: Pain control as clinically indicated -: Continue Amlodipine/Prazosin -: AM lab: H/H * .
[2019-03-18] MEDS ORDERED: GoLYTELY 4,000 ml Bottle PO SCH (13:00)
[2019-03-18] MEDS ORDERED: Acetaminophen 500 MG TAB PO PRN (13:03)
[2019-03-18] MEDS ORDERED: traMADol HCl 50 MG TAB PO PRN (13:03)
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
--- NOTE | 2019-03-18 16:36 | PRG ---
DATE OF SERVICE: 03/18/2019 SUBJECTIVE: Mr. Ambrocio states he has little bit of discomfort in his lower abdomen. He is drinking some GoLYTELY, now he is drinking about half of it . He did report some throwing up a little bit earlier yesterday, which is very vague. OBJECTIVE: VITAL SIGNS: Temperature is 98, pulse 80, blood pressure 145/95. He has a flat affect. ABDOMEN: Soft and nontender. No rebound. No guarding. LABORATORY DATA: Hemoglobin is 13.4 today. ASSESSMENT: Foreign body ingestion, repetitive x-ray today shows progression of the foreign bodies both appeared to be in the ascending colon as compared to previous films that actually also both seemed to be overlapping at this point in time. He has quite a bit of stool in the colon. Otherwise, I think that at this point, we are going to try some GoLYTELY and see if we can push the stool through has been getting around the foreign bodies and general Surgery is aware and is in agreement, and apparently, Dr. Avila already ordered the GoLYTELY before I could. We will follow along with you. Job ID: [id number]
[2019-03-18] MEDS: traMADol HCl 50 MG TAB PO PRN ×2 (17:21→22:27)
[2019-03-18] MEDS: Prazosin HCl 1 MG CAP PO SCH (20:54)
[2019-03-18] MEDS: diphenhydrAMINE 50 MG CAP PO SCH (20:54)
[2019-03-18] MEDS: Emtricitabine/Tenofovir 200-300 MG TAB PO SCH (20:54)
--- NOTE | 2019-03-19 07:58 | RAD ---
EXAM: 2 views of the abdomen HISTORY: Ingested foreign bodies COMPARISON: 03/18/2019 FINDINGS: Single view of the abdomen shows a nonspecific, nonobstructive bowel gas pattern. A few air -fluid levels on upright examination likely are within the colon. The radiopaque foreign bodies are still seen in the right abdomen, likely within the right colon. No suspicious calcifications are see n. The bones are unremarkable. IMPRESSION: Radiopaque foreign bodies are in the right colon.
[2019-03-19] MEDS ORDERED: GoLYTELY 4,000 ml Bottle PO SCH (10:00)
[2019-03-19] MEDS: Amlodipine 5 MG TAB PO SCH ×2 (10:44→17:56)
[2019-03-19] MEDS: risperiDONE 1 MG TAB PO SCH (10:45)
[2019-03-19] MEDS: Docusate 100 MG CAP PO SCH ×2 (10:45→21:20)
[2019-03-19] MEDS: Citrucel 500 MG TAB PO SCH (10:45)
[2019-03-19] MEDS: Enoxaparin Sodium 40 MG/0.4 ML SYRINGE SC SCH (10:45)
[2019-03-19] MEDS: Polyethylene Glycol 3350 17 GM Packet PO SCH ×3 (10:45→21:20)
[2019-03-19] MEDS ORDERED: Lidocaine 1% PF 5 ML VIAL ONE (10:49)
--- NOTE | 2019-03-19 13:41 | PRG ---
DATE OF SERVICE: 03/19/2019 SUBJECTIVE: Rhonda Ambrocio is doing well today. He completed his bowel prep yesterday and had regular food after that. This morning, his x-rays revealed the foreign bodies probably in the right colon. There was still quite a bit of stool in the right colon. He does not complain of any pain. OBJECTIVE: VITAL SIGNS: Temperature 98.3 degrees, pulse 74, and blood pressure 100/64. ABDOMEN: Soft, nontender, and nondistended. ASSESSMENT AND PLAN: Foreign body, probably in his right colon. I have talked to Dr. Elizalde. He will undergo another bowel prep today and colonoscopy be attempted to remove this foreign body. We will check his abdominal x-rays in the morning unless of course the foreign body is removed later today. Job ID: [id number]
--- NOTE | 2019-03-19 14:07 | RAD ---
ABDOMEN 1 VIEW: Date: 03/19/19 HISTORY: Foreign body. After more GoLYTELY. FINDINGS: Comparison made with earlier exam of 0758 hours from the same date. Radiopaque foreign bodies in the right colon are again seen without significant change in position. The bowel gas pattern is unremarkable. IMPRESSION: Stable radiopaque foreign bodies in the right colon. POS: OFF
[2019-03-19] MEDS ORDERED: Fleet Enema 133 ML BOT PR STA (14:16)
[2019-03-19] MEDS ORDERED: Promethazine HCl 25 MG/ML VIAL IM PRN (15:04)
[2019-03-19] MEDS ORDERED: Ondansetron HCl/PF 4 MG/2 ML Vial IVP PRN (15:04)
[2019-03-19] MEDS ORDERED: Promethazine HCl 25 MG/ML VIAL SLOW IVP PRN (15:04)
--- NOTE | 2019-03-19 15:23 | PDOC.PN ---
- Subjective Encounter Start Date: 03/19/19 Encounter Start Time: 15:10 Subjective: f/u for intentional metallic foreign object ingestion. Objects remain -: in R colon by abd radiographs. - Objective MAR Reviewed: Yes Vital Signs & Weight: Vital Signs (12 hours) Temp Pulse Resp BP Pulse Ox 03/19/19 10:44 74 03/19/19 07:42 98.3 F 74 16 100/64 96 Weight Weight 176 lb 1.6 oz I&O: 03/18/19 03/19/19 03/20/19 06:59 06:59 06:59 Intake Total 480 720 Output Total 600 700 Balance -120 20 Result Diagrams: 03/18/19 05:11 03/15/19 04:20 Radiology Reviewed by me: Yes (ABD x-ray - metallic objects remain in R colon) Phys Exam - Physical Examination Constitutional: NAD HEENT: PERRLA, sclera anicteric, oral pharynx no lesions Neck: no nodes, no JVD, supple, full ROM Respiratory: no wheezing, no rales, no rhonchi, clear to auscultation bilateral Cardiovascular: RRR, no significant murmur, no rub, gallop mild TTP Gastrointestinal: soft, no distention, positive bowel sounds Musculoskeletal: no edema, pulses present Neurological: normal sensation, moves all 4 limbs Psychiatric: A&O x 3 Skin: normal turgor, cap refill <2 seconds Dx/Plan (1) Swallowed foreign body Code(s): T18.9XXA - FOREIGN BODY OF ALIMENTARY TRACT, PART UNSP, INIT ENCNTR Status: Acute Comment: Plan for EGD/colonoscopy today,NPO, pain control (2) Hematemesis Code(s): K92.0 - HEMATEMESIS Status: Acute Comment: Transient, ? 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
[2019-03-19] MEDS: traMADol HCl 50 MG TAB PO PRN (17:42)
[2019-03-19] MEDS: Emtricitabine/Tenofovir 200-300 MG TAB PO SCH (21:20)
[2019-03-19] MEDS: diphenhydrAMINE 50 MG CAP PO SCH (21:20)
[2019-03-19] MEDS: Prazosin HCl 1 MG CAP PO SCH (21:20)
[2019-03-19] MEDS: Ondansetron PF 4 MG/2 ML Vial IVP PRN (21:21)
--- NOTE | 2019-03-19 21:48 | OP ---
DATE OF PROCEDURE: 03/19/2019 PROCEDURES PERFORMED: Esophagogastroduodenoscopy and colonoscopy, aborted. PREOPERATIVE DIAGNOSES: Ingested metallic foreign body and hematemesis. DESCRIPTION OF PROCEDURE: Informed consent was obtained from the patient. He was sedated with total intravenous anesthesia. The bite block was placed and the endoscope was advanced easily to the second portion of the duodenum. The esophagus was normal. The GE junction was normal. The views of the stomach were largely obstructed due to a large amount of retained food. The pylorus and first and second portions of the duodenum were normal. The patient was turned around. Rectal exam was performed and was normal. The colonoscope was advanced to the ascending colon. The preparation quality was poor and inadequate. I tried to get around to the ileocecal valve anyway, but the right to the colon had still a large amount of liquid and solid stool that made this impossible. IMPRESSION: 1. Esophagogastroduodenoscopy without signs of active bleeding. 2. Colonoscopy aborted due to inadequate/poor prep. RECOMMENDATIONS: 1. Repeat bowel prep and clear liquid diet. 2. Re-attempt colonoscopy tomorrow. Job ID: [id number]
[2019-03-20] MEDS: traMADol HCl 50 MG TAB PO PRN ×2 (00:50→14:40)
[2019-03-20] MEDS ORDERED: GoLYTELY 4,000 ml Bottle PO SCH (07:15)
[2019-03-20] MEDS: Enoxaparin Sodium 40 MG/0.4 ML SYRINGE SC SCH (07:24)
--- NOTE | 2019-03-20 07:51 | RAD ---
EXAM: 2 views of the abdomen HISTORY: Ingested foreign bodies COMPARISON: None FINDINGS: Single view of the abdomen shows a nonspecific, nonobstructive bowel gas pattern. The forei gn bodies are still seen in the right lower quadrant of the abdomen. On the lateral radiograph, these appear slightly posterior to the air in the colon. IMPRESSION: Radiopaque foreign bodies in the right lower quadrant of the abdomen. These appear halfway house counselor ior to the right colon on the lateral radiograph. These are within a uncertain position. These may be within small bowel, but foreign bodies free within the peritoneum are also a possibility. A CT of the abdomen should be performed for further evaluation.
[2019-03-20] MEDS: Polyethylene Glycol 3350 17 GM Packet PO SCH (07:54)
[2019-03-20] MEDS: risperiDONE 1 MG TAB PO SCH (07:56)
[2019-03-20] MEDS: Citrucel 500 MG TAB PO SCH (07:56)
[2019-03-20] MEDS: Docusate 100 MG CAP PO SCH (07:57)
[2019-03-20] MEDS: Amlodipine 5 MG TAB PO SCH (08:21)
--- NOTE | 2019-03-20 09:53 | PRG ---
DATE OF SERVICE: 03/20/2019 SUBJECTIVE: Rhonda Ambrocio is doing well today. He is not having any pain. OBJECTIVE: VITAL SIGNS: Temperature 98.2 degrees, heart rate 70, blood pressure 114/75. LUNGS: Clear to auscultation. CARDIAC: Regular rate and rhythm. No murmur or gallop. ABDOMEN: Soft, nontender. ASSESSMENT AND PLAN: Abdominal x-rays today obtained revealed a foreign body in the vicinity of the right colon. It appears that the amount of stool has decreased in the right, although there appears to be some stool. He had an incomplete colonoscopy yesterday, and he is undergoing a [employer] bowel prep today to obtain colonoscopy again today, hopefully able to retrieve this foreign body. At this point, I will await GI findings on colonoscopy. Job ID: [id number]
--- NOTE | 2019-03-20 11:52 | PDOC.PN ---
- Subjective Encounter Start Date: 03/20/19 Encounter Start Time: 11:50 Subjective: f/u for intentional metal ingestion with retained object in R colon. -: Colonoscopy aborted 03/19 due to poor prep/visualization. Await -: second attempt after Golytely prep today. - Objective MAR Reviewed: Yes Vital Signs & Weight: Vital Signs (12 hours) Temp Pulse Resp BP BP Pulse Ox 03/20/19 08:21 70 03/20/19 08:00 98.2 F 70 18 114/75 97 03/20/19 03:00 98.3 F 70 20 102/66 96 03/20/19 00:00 98.3 F 72 20 100/62 97 Weight Weight 176 lb 1.6 oz I&O: 03/19/19 03/20/19 03/21/19 06:59 06:59 06:59 Intake Total 720 Output Total 700 Balance 20 Result Diagrams: 03/18/19 05:11 03/15/19 04:20 Radiology Reviewed by me: Yes (Abd x-ray - retained metallic foreign objects in R colon) Phys Exam - Physical Examination Constitutional: NAD HEENT: PERRLA, sclera anicteric, oral pharynx no lesions Neck: no nodes, no JVD, supple, full ROM Respiratory: no wheezing, no rales, no rhonchi, clear to auscultation bilateral S1, S2 Cardiovascular: RRR, no significant murmur, no rub, gallop Gastrointestinal: soft, non-tender, no distention, positive bowel sounds Musculoskeletal: no edema, pulses present Neurological: normal sensation, moves all 4 limbs Psychiatric: A&O x 3 Skin: normal turgor, cap refill <2 seconds Dx/Plan (1) Swallowed foreign body Code(s): T18.9XXA - FOREIGN BODY OF ALIMENTARY TRACT, PART UNSP, INIT ENCNTR Status: Acute Comment: Plan for repeat colonoscopy today,NPO, pain control, Golytely prep (2) Hematemesis Code(s): K92.0 - HEMATEMESIS Status: Acute Comment: Transient, ? relation to current foreign objects given that the metallic objects are distal in the RLQ , H/H stable (3) Bipolar disorder Code(s): F31.9 - BIPOLAR DISORDER, UNSPECIFIED Status: Chronic (4) HIV (human immunodeficiency virus infection) Code(s): B20 - HUMAN IMMUNODEFICIENCY VIRUS [HIV] DISEASE Status: Chronic Comment: Continue anti-retroviral therapy (5) Hypertension Code(s): I10 - ESSENTIAL (PRIMARY) HYPERTENSION Status: Chronic Qualifiers: Hypertension type: essential hypertension Qualified Code(s): I10 - Essential (primary) hypertension Comment: Continue outpt BP regimen - Plan out of bed/ambulate, DVT proph w/SCDs Stable overall -: Continue completion of Golytely prep -: Colonoscopy 2nd look today -: Continue Protonix 40mg BID -: Likely d/c in 24h * .
[2019-03-20] MEDS ORDERED: Lidocaine 1% PF 5 ML VIAL ONE (11:57)
[2019-03-20] MEDS ORDERED: Succinylcholine Chloride 20 MG/ML 10 ml SYRINGE FS ONE (11:57)
[2019-03-20] MEDS ORDERED: PROPOFOL 200 MG/20 ML VIAL ONE (11:57)
[2019-03-20 12:12] VITALS: TEMP 98.3
[2019-03-20] MEDS: Ondansetron PF 4 MG/2 ML Vial IVP PRN (14:30)
--- NOTE | 2019-03-20 16:48 | RAD ---
EXAM: Single view of the abdomen HISTORY: Ingested radiopaque foreign body COMPARISON: None FINDINGS: Single view of the abdomen shows a nonspecific, nonobstructive bowel gas pattern. 2 radiopa que foreign bodies are again seen in the right lower quadrant of the abdomen. There is a new radiopaque foreign body in the left upper quadrant abdomen which likely represents a battery. No susp icious calcifications are seen. The bones are unremarkable. IMPRESSION: Radiopaque foreign bodies without evidence of obstruction.
[2019-03-20] MEDS ORDERED: Ketamine 50 MG/ML (10ML VIAL) ONE (17:42)
[2019-03-20] MEDS ORDERED: PROPOFOL 20 ML ONE (17:42)
[2019-03-20 17:43] VITALS: BP 125/83
[2019-03-20] MEDS ORDERED: Fentanyl 100 MCG/2 ML VIAL ONE (17:58)
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
--- NOTE | 2019-03-20 21:58 | OP ---
DATE OF PROCEDURE: 03/20/2019 PROCEDURE PERFORMED: Esophagogastroduodenoscopy with foreign body removal. INDICATION FOR PROCEDURE: Ingestion of battery. DESCRIPTION OF PROCEDURE: After the risks and benefits of the procedure were explained to the patient including risks of bleeding, infection, perforation, reactions to anesthesia, aspiration and/or pain, informed consent was obtained. The patient was then taken to the endoscopy suite, where general anesthesia was administered with endotracheal tube intubation. Once the patient was intubated and sedated, the standard gastroscope was introduced into the mouth with intubation of the esophagus, stomach, and the proximal small intestine with the findings listed below. The patient tolerated the procedure well with no immediate perioperative complications. Upon conclusion of the procedure, the patient was extubated and transferred to PACU in satisfactory condition. FINDINGS: Esophagus: Normal-appearing mucosa was seen in the proximal, mid, and distal esophagus. There was no evidence of erosions, ulcerations, mass, lesions, or active/recent bleeding. Stomach: A large amount of retained solid and liquid food was seen in the gastric cardia, fundus, body, and antrum that significantly interfered with visualization of the gastric mucosa along with the contents of the lumen itself. With aggressive irrigation, suctioning and by use of Zavala Net to remove solid food debris, a large amount of this food was successfully removed from the stomach in successive sweeps, and ultimately revealed an AA battery ([employer]nerg[employer]), that was successfully removed from the stomach via Zavala Net. Examination of the stomach was then performed with adequate visualization of 80% of the stomach at this point with no evidence of erosions, ulcerations, mass, lesions, or active/recent bleeding. Duodenum: Normal-appearing mucosa was seen in both the duodenal bulb and second portion of the duodenum. There was no evidence of erosions, ulcerations, mass, lesions, or active/recent bleeding. IMPRESSION: 1. A large amount of retained solid and liquid food was seen within the gastric lumen. 2. Successful extraction of an AA battery via Zavala Net after multiple successive sweeps with Zavala Net to remove solid food debris. RECOMMENDATIONS: 1. Strongly advised the patient against the ingestion of batteries in the future. 2. The patient can be discharged back to [facility] as soon as PACU criteria has been met. 3. We would recommend a higher fiber diet and KUB weekly for passage of other ingested foreign bodies as stated in the progress note earlier today. Job ID: [id number]
--- NOTE | 2019-03-20 22:49 | DIS ---
DATE OF ADMISSION: 03/13/2019 DATE OF DISCHARGE: 03/20/2019 DISCHARGE DIAGNOSES: 1. Intentional ingestion of metallic foreign body. 2. Question of suicide attempt. 3. Hematemesis, suspected self-inflicted. 4. Bipolar disorder. 5. Human immunodeficiency virus with current anti-retroviral therapy. 6. Hypertension, stable. CONSULTATIONS: 1. Dr. Reno with General Surgery Service. 2. Dr. Munguia, Dr. Can, and Dr. Elizalde with GI Service. PERTINENT LAB AND X-RAY FINDINGS: Complete metabolic profile within normal limits. CBC showed a hemoglobin ranged between 12.5 to 13.6. KUB dated 03/13/2019, showed metallic foreign bodies overlying the mid abdomen. CT of the abdomen and pelvis dated 03/13/2019, showed 2 metallic foreign objects in the 3rd portion of the duodenum. No free air noted. Abdominal radiographs dated 03/14/2019, showed interval movement of the 2 swallowed metallic foreign bodies. EGD dated 03/19/2019, showed normal appearing mucosa. No active bleeding identified. Colonoscopy exam dated 03/19/2019, showed poor prep with large amount of liquids and solid stool in the ascending colon and ileocecal valve region. HOSPITAL COURSE: The patient was initially admitted after presenting with abdominal pain in the context of intentional ingestion of 2 metallic foreign objects. The patient with recent admission for the same presentation on 03/09/2019 through 03/10/2019, swallowing a metal screw. The patient had undergone previous upper endoscopy with successful retrieval of the object. The patient was noted with superficial lacerations at that time, but no active bleeding. The patient returned with a 2nd ingestion of 2 foreign metal objects, monitored with serial abdominal radiographs. The patient was evaluated by General Surgery and GI Service on multiple occasions during the hospital course with recommendations for conservative management including bulk forming agents and fiber replacement in addition to stool softeners. The patient subsequently underwent EGD evaluation on 03/19/2019, showing no acute or active bleeding or evidence of superficial laceration. The patient had been noted with intermittent bouts of hematemesis of small volume, likely self-inflicted. The patient underwent colonoscopy exam on 03/19/2019. However, the procedure was aborted due to poor bowel prep. The patient continued to receive GoLYTELY with the idea of assisting with evacuation of the retained foreign objects which had migrated to the right colon. The patient had persistent retention of the foreign objects in the right colon; however, the consensus among GI surgery and Internal Medicine service was for conservative management and to monitor for spontaneous passage on an ongoing basis as an outpatient. The patient overall clinically stable with stable vital signs at the time of discharge. I have examined the patient and discussed followup instructions. The patient is ready for discharge on 03/20/2019. DISCHARGE MEDICATIONS: 1. Norvasc 5 mg p.o. daily. 2. Benadryl 50 mg p.o. at bedtime. 3. Truvada 300 mg p.o. at bedtime. 4. Lactulose 30 mL p.o. daily. 5. Lamivudine 300 mg p.o. at bedtime. 6. Omeprazole 20 mg p.o. daily. 7. Prazosin 2 mg p.o. at bedtime. 8. Risperdal 1 mg p.o. daily. 9. Spironolactone 25 mg p.o. b.i.d. 10. Citrucel 500 mg p.o. daily. 11. MiraLAX 17 g p.o. b.i.d. 12. Ultram 50 mg p.o. q.6 hours p.r.n. pain. FOLLOWUP: The patient may follow up with the medical system at [facility]. SPECIAL INSTRUCTIONS: Recommend weekly KUB until passage of metallic foreign objects. DIET: Regular. CODE STATUS: Full. DISPOSITION: Discharged to [facility] on 03/20/2019. Job ID: [id number]
== END 2019-03-20 22:37 | DRG 394 ==
LOC: EEVIPCON 15:52 → ERS 15:52 → OBSVTOIN 21:35 → 2SW 21:35 → T4-A 03-17 13:26
PROVIDERS: ADMIT Hospitalist; ATTEND Hospitalist
PROC: 0DJ08ZZ Inspection of Upper Intestinal Tract, Via Natural or Artificial Opening Endoscopic (ICD-10-PCS; 2019-03-19)
PROC: 0DJD8ZZ Inspection of Lower Intestinal Tract, Via Natural or Artificial Opening Endoscopic (ICD-10-PCS; 2019-03-19)
PROC: 0DC68ZZ Extirpation of Matter from Stomach, Via Natural or Artificial Opening Endoscopic (ICD-10-PCS; principal; 2019-03-20)
DX: T18.2XXA Foreign body in stomach, initial encounter (principal); K92.0 Hematemesis; I10 Essential (primary) hypertension; K21.9 Gastro-esophageal reflux disease without esophagitis; F31.9 Bipolar disorder, unspecified; F20.9 Schizophrenia, unspecified; X83.8XXA Intentional self-harm by other specified means, initial encounter; Z21 Asymptomatic human immunodeficiency virus [HIV] infection status; F63.9 Impulse disorder, unspecified; K59.00 Constipation, unspecified; Z90.49 Acquired absence of other specified parts of digestive tract; Z88.8 Allergy status to other drugs, medicaments and biological substances; Z79.899 Other long term (current) drug therapy
CPT/HCPCS: 36415; 74018; 74019; 74022; 74176; 80048; 80053; 83690; 85007; 85014; 85018; 85025; 85027; 85049; 96374; 96375; C9113; J2001; J2270; J2405; J2704; J3010; Q0162; Q0163

== ENCOUNTER 2019-03-24 00:34 | Inpatient (IN) | payer OTHER ==
[2019-03-24] MEDS ORDERED: Adacel (T-DAP) 0.5 ML SYRINGE ONE (01:11)
[2019-03-24] MEDS ORDERED: Pantoprazole 40 MG VIAL ONE (01:11)
[2019-03-24 01:28] LABS: #Eosinphils 0.1 thou/uL (0.0-0.7); #Lymphocytes 1.3 thou/uL (1.20-3.40); #Monocytes 0.6 thou/uL (0.11-0.59); #Neutrophils 3.2 thou/uL (1.40-6.50); %Basophils 0.4 % (0.0-1.0); %Eosinophils 2.6 % (0.0-10.0); %Lymphocytes 24.8 % (21.0-51.0); %Monocytes 11.7 % (0.0-10.0); %Neutrophils 60.6 % (42.0-75.0); Hemoglobin 12.7 g/dL (14.0-18.0); Mean Corpuscular HGB CONC 33.3 g/dL (32.0-36.0); Mean Corpuscular Hemoglobin 30.1 pg (27.0-31.0); Mean Corpuscular Volume 90.4 fL (78.0-98.0); Mean Platelet Volume 7.3 fL (7.4-10.4); Platelet Count 160 thou/uL (130-400); RBC Distribution Width 11.7 % (11.5-14.5); Red Blood Cell (RBC) Count 4.22 mill/uL (4.70-6.10); White Blood Cell (WBC) Count 5.3 thou/uL (4.8-10.8)
[2019-03-24 01:49] LABS: ALT (SGPT) 10 U/L (8-55); AST (SGOT) 18 U/L (5-34); Albumin 4.1 g/dL (3.5-5.0); Alkaline Phosphatase 61 U/L (40-150); Anion Gap 10 mmol/L (10-20); BUN (Urea Nitrogen) 8 mg/dL (8.9-20.6); Bilirubin, Total 0.4 mg/dL (0.2-1.2); Calc. Creatinine Clearance 0 mL/min (70-130); Calcium 9.7 mg/dL (7.8-10.44); Carbon Dioxide 26 mmol/L (22-29); Chloride 107 mmol/L (98-107); Estimated GFR-MDRD Greater than 90; Globulin 3.3 g/dL (2.4-3.5); Glucose 91 mg/dL (70-105); Potassium 4.2 mmol/L (3.5-5.1); Protein, Total 7.4 g/dL (6.0-8.3); Sodium 139 mmol/L (136-145)
[2019-03-24] MEDS ORDERED: Acetaminophen 500 MG TAB ONE (02:32)
[2019-03-24 04:03] LABS: INR-International Normal Ratio 1.2; PTT 27.4 SEC (22.9-36.1); Prothrombin Time 15.2 SEC (12.0-14.7)
--- NOTE | 2019-03-24 09:09 | CT ---
PRELIMINARY REPORT/[facility]/EMERGENCY AFTER HOURS PROCEDURE: EXAM: CT Abdomen and Pelvis With Contrast EXAM DATE/TIME: 03/24/2019 1:16 AM CLINICAL HISTORY: 39 years old, male; Generalized; Patient HX: M39 presents to the ED from [facility] for evaluation of dif fuse abdominal pain and vomiting S/P foreign body ingestion onset at 16:00. PT reports he swallowed s ix screws because he felt frustrated. PT denies si. PT reports vomiting at 16:30 with "a small amount of blood. ". TECHNIQUE: Imaging protocol: Axial computed tomography images of the abdomen and pelvis with intravenous contras t. COMPARISON: No relevant prior studies available. FINDINGS: Lungs: Focal bronchiolitis right lung base. Filling defect in a pulmonary vessel in the right lung ba se. Liver: No liver masses. Gallbladder and bile ducts: Normal appearance of the gallbladder. No ductal dilation. Pancreas: No pancreatic mass or ductal dilation. Spleen: No splenic masses. Adrenals: No adrenal nodules. Kidneys and ureters: No enhancing mass or hydronephrosis. Stomach and bowel: There is a 2 x 1 cm rectangular foreign body in the rectum. Surgical sutures aroun d the transverse colon. There are 4 screws and a rectangular metallic foreign body in the right upper quadrant of the abdomen, just inferior to the third segment of the duodenum. Appendix: The appendix is not visualized. Intraperitoneal space: No free fluid or free air. Vasculature: Normal vasculature. Lymph nodes: No lymphadenopathy. Bladder: Normal. Reproductive: Normal. Bones/joints: No suspicious bone lesions. Soft tissues: No acute findings. IMPRESSION: 1. Filling defects in a pulmonary vessel in the right lower lobe. A full CT of the chest with PE prot ocol is recommended to evaluate for pulmonary embolism. 2. Single screw in the second segment of the duodenum. 4 screws and a rectangular foreign body, possi jonathan a razor blade, in the right upper quadrant. Streak artifact precludes full evaluation, but these are likely in a small bowel loop. There is no free air or free fluid to suggest perforation. There is a second rectangular foreign body in the rectosigmoid colon. No bowel obstruction. 3. Nonspecific focal bronchiolitis right lung base. THIS REPORT CONTAINS FINDINGS THAT MAY BE CRITICAL TO PATIENT CARE. The findings were verbally commun icated via telephone conference with FRANCISCO DHILLON at 2:22 AM CDT on 03/24/2019. The findings wer e acknowledged and understood. Thank you for allowing us to participate in the care of your patient. Dictated and Authenticated by: Missy Vang MD 03/24/2019 2:23 AM Central Time ([place] & [place]) FINAL REPORT ABDOMEN CT WITH CONTRAST PELVIC CT WITH CONTRAST: Date: 03/24/19 HISTORY: Ingestion of foreign bodies. FINDINGS: No solid organ abnormality. Symmetric enhancement of the kidneys. Multiple foreign bodies are in the distal portion of the stomach, as well as in the duodenum. There has been interval passage since the CT performed at [facility] on 03/23/19. There is evidence of a persistent foreign b jayne in the rectum. No evidence of pneumoperitoneum. There are filling defects in the right lower lobe pulmonary vasculature. The possibility of right low er lobe pulmonary artery emboli cannot be excluded. CT angiogram of the chest is recommended. IMPRESSION: This report is in agreement with the preliminary report by [facility]. 1. Extensive foreign bodies as described above. There is no evidence of free air or free fluid to cao ggest perforation. No evidence of bowel obstruction. 2. Possible pulmonary artery emboli involving right lower lobe arterial system. CT angiogram of ches t is recommended. Results of study discussed with Dr. Herrera on 03/24/19 at 0811 hours. CODE CR. POS: OFF
[2019-03-24] MEDS ORDERED: Ondansetron PF 4 MG/2 ML Vial IVP PRN ×2 (09:10→11:45)
[2019-03-24] MEDS ORDERED: Amiodarone 150 MG/3 ML VIAL ONE (10:00)
--- NOTE | 2019-03-24 10:50 | PDOC.EVN ---
Event Note - Event Note Event Note: H&P #[id number]
[2019-03-24 11:10] VITALS: BMI 26.3
[2019-03-24] MEDS ORDERED: ISOVUE-370 76%-LOCM 1 ML ONE (11:21)
[2019-03-24] MEDS ORDERED: Acetaminophen 325 MG TAB PO PRN (11:45)
[2019-03-24] MEDS ORDERED: Ondansetron ODT 4 MG TAB SL PRN (11:45)
--- NOTE | 2019-03-24 11:57 | RAD ---
KUB: Date: 03/24/19 HISTORY: Evaluation of foreign bodies. COMPARISON: 03/20/19 study. FINDINGS: Contrast from a previous CT is present. There are multiple metallic foreign bodies present. What appe ared to represent a battery on the previous examination is no longer seen, but there are several new additional foreign bodies identified. IMPRESSION: Apparent interval removal of the battery, but there are several other new metallic foreign bodies pre sent. POS: [facility]
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
--- NOTE | 2019-03-24 17:24 | HP ---
CHIEF COMPLAINT: Abdominal pain. HISTORY OF PRESENT ILLNESS: This is a 39-year-old male presenting to the hospital having swallowed 4 screws and potentially a razor blade. The patient of note had done this recently and had an endoscopy done about 4 days ago. At that point in time, he had swallowed batteries. The patient has also been here prior to that from the [facility] system successfully finding objects to ingest in his stomach. The patient this time around appears to have swallowed multiple screws as well as a potential razor blade. The patient states that he did this because he had angry that he could not get his asthma medications on time, so he was able to find some screws and a razor blade and swallowed them. The patient otherwise states that he has some abdominal pain. No other complaints. No other associated alleviating or aggravating factors. He has had this happen to him before as mentioned earlier. No other issues. No family at bedside. ALLERGIES: 1. ASPIRIN. 2. TORADOL. SOCIAL HISTORY: Nondrinker. Nonsmoker. FAMILY HISTORY: Unknown. PAST MEDICAL HISTORY: Hypertension. PHYSICAL EXAMINATION: VITAL SIGNS: Blood pressure 133/80, respiratory rate of 18, temperature of 98, O2 saturations of 100% on room air, heart rate of 80. GENERAL: The patient in no acute distress, lying in bed comfortably. Handcuffs in place. Two police officers are at bedside. HEENT: Pupils are equal, round, and reactive to light and accommodation. Extraocular muscles are intact. Oral cavity is moist and pink. NECK: Supple, mobile, and nontender. Thyroid appreciated. PULMONARY: Clear to auscultation bilaterally. No rales, rhonchi, or wheezing. CARDIOVASCULAR: Regular rate and rhythm. S1 and S2. No murmurs, rubs, or gallops appreciated. ABDOMEN: Positive bowel sounds. Soft, nontender, and nondistended. EXTREMITIES: 2+ peripheral pulses noted. No cyanosis, clubbing, or edema noted. LABORATORY DATA: Reviewed. IMAGING STUDIES: Reviewed. ASSESSMENT: 1. Foreign body in stomach. 2. Hypertension. PLAN: At this point in time, we will place the patient n.p.o. Consults to General Surgery and GI. We will provide IV p.r.n. Zofran for nausea. We will not provide any pain medications as these will likely cause constipation potentially worsening transit time as well as risking perforation of the screws in his bowels. Daily abdominal x-rays from now. Surgery and GI also to be on board. At this point in time, really nothing further to do until the patient defecates the items that he has swallowed. The patient wishes to remain a full code. Case and plan were discussed with the patient at length. He understood and agreed with this plan. Job ID: [id number]
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
[2019-03-25] MEDS ORDERED: hydrALAZINE 20 MG/ML VIAL SLOW IVP PRN (07:57)
[2019-03-25] MEDS ORDERED: HYDROcodone/Acetaminophen 5/325 mg Tablet PO PRN (07:57)
[2019-03-25] MEDS ORDERED: Loperamide HCl 2 MG CAP PO PRN (07:57)
[2019-03-25] MEDS ORDERED: Ondansetron ODT 4 MG TAB PO PRN (07:57)
[2019-03-25] MEDS ORDERED: Zolpidem Tartrate 5 MG TAB PO PRN (07:57)
[2019-03-25] MEDS ORDERED: Bisacodyl 10 MG SUPP PR PRN (07:57)
[2019-03-25] MEDS ORDERED: Artificial Tears 18 DROP/0.9 ML EA EYE PRN (07:57)
[2019-03-25] MEDS ORDERED: Diabetic Tussin 200 MG/10 ML UDCUP PO PRN (07:57)
[2019-03-25] MEDS ORDERED: Loratadine 10 MG TAB PO PRN (07:57)
[2019-03-25] MEDS ORDERED: Calcium Carbonate 500 MG ChewTAB PO PRN (07:57)
[2019-03-25] MEDS ORDERED: Senokot S 8.6-50 MG TAB PO PRN (07:57)
[2019-03-25] MEDS ORDERED: Ondansetron PF 4 MG/2 ML Vial IVP PRN (07:57)
[2019-03-25] MEDS ORDERED: Cepastat Lozenges 1 LOZ PO PRN (07:57)
[2019-03-25] MEDS ORDERED: Sodium Chloride 0.65% Nasal 44 ML BOT EA NARE PRN (07:57)
[2019-03-25 09:23] LABS: #Eosinphils 0.2 thou/uL (0.0-0.7); #Lymphocytes 1.1 thou/uL (1.20-3.40); #Monocytes 0.5 thou/uL (0.11-0.59); #Neutrophils 3.5 thou/uL (1.40-6.50); %Basophils 0.7 % (0.0-1.0); %Eosinophils 3.7 % (0.0-10.0); %Lymphocytes 20.2 % (21.0-51.0); %Monocytes 9.2 % (0.0-10.0); %Neutrophils 66.3 % (42.0-75.0); Hemoglobin 13.6 g/dL (14.0-18.0); Mean Corpuscular HGB CONC 33.7 g/dL (32.0-36.0); Mean Corpuscular Hemoglobin 30.5 pg (27.0-31.0); Mean Corpuscular Volume 90.4 fL (78.0-98.0); Mean Platelet Volume 7.6 fL (7.4-10.4); Platelet Count 184 thou/uL (130-400); RBC Distribution Width 11.6 % (11.5-14.5); Red Blood Cell (RBC) Count 4.46 mill/uL (4.70-6.10); White Blood Cell (WBC) Count 5.3 thou/uL (4.8-10.8)
[2019-03-25 09:40] LABS: Anion Gap 10 mmol/L (10-20); BUN (Urea Nitrogen) 11 mg/dL (8.9-20.6); Calc. Creatinine Clearance 109 mL/min (70-130); Calcium 9.3 mg/dL (7.8-10.44); Carbon Dioxide 27 mmol/L (22-29); Chloride 104 mmol/L (98-107); Estimated GFR-MDRD Greater than 90; Glucose 107 mg/dL (70-105); Potassium 4.3 mmol/L (3.5-5.1); Sodium 137 mmol/L (136-145)
[2019-03-25] MEDS: risperiDONE 1 MG TAB PO SCH (09:55)
[2019-03-25] MEDS: Amlodipine 10 MG TAB PO SCH (09:55)
[2019-03-25] MEDS: Spironolactone 25 MG TAB PO SCH ×2 (09:55→20:34)
--- NOTE | 2019-03-25 10:41 | CT ---
CT ANGIO OF CHEST PERFORMED WITH IV CONTRAST ENHANCEMENT WITH 3D RECONSTRUCTION: Date: 03/25/19 HISTORY: Cough and shortness of breath. CT abdomen which showed the possibility of some right lower lobe pulmo nary emboli. COMPARISON: 03/24/19 CT abdomen and pelvis. FINDINGS: The lungs show some minimal subsegmental atelectatic change. No confluent infiltrative process noted. The thoracic aorta is normal in caliber. There is good pulmonary artery opacification and there is ev idence of right lower lobe pulmonary emboli, also left lower lobe pulmonary embolus is noted in a sub segmental branch. IMPRESSION: 1. Bilateral lower lobe pulmonary emboli. 2. Radiopaque foreign bodies incidentally again noted within the abdomen. POS: [facility]
--- NOTE | 2019-03-25 10:43 | RAD ---
KUB: Date: 03/25/19 HISTORY: Follow-up of foreign bodies. FINDINGS: Radiopaque foreign bodies are again identified. There has been some change in position. There appear to be more that are now present within what appears to be the right colon. One still overlies the upp er mid abdomen and one lies in the right side of the pelvis. IMPRESSION: Some change in position of the foreign bodies. There appears to be some progression of some into the right colon. POS: [facility]
[2019-03-25] MEDS: traMADol HCl 50 MG TAB PO PRN ×2 (10:56→22:45)
[2019-03-25] MEDS ORDERED: ISOVUE-370 76%-LOCM 1 ML ONE (11:43)
--- NOTE | 2019-03-25 11:47 | PDOC.PN ---
- Subjective Encounter Start Date: 03/25/19 Encounter Start Time: 10:00 -: old records requested/rev pt has pleuritic chest discomfort, has dry cough, Patient seen and examined. No overnight events - Objective Resuscitation Status - Order Detail: 03/25/19 07:59 Resuscitation Status Routine Resuscitation Status: FULL: Full Resuscitation MAR Reviewed: Yes Vital Signs & Weight: Vital Signs (12 hours) Temp Pulse Resp BP BP Pulse Ox 03/25/19 09:55 73 131/82 03/25/19 08:00 97.9 F 73 16 131/82 97 03/25/19 04:00 98.0 F 84 16 131/90 99 03/25/19 00:00 97.6 F 62 16 123/94 H 97 Weight Weight 173 lb 1 oz I&O: 03/24/19 03/25/19 03/26/19 06:59 06:59 06:59 Intake Total 480 100 Balance 480 100 Result Diagrams: 03/25/19 09:10 03/25/19 09:10 Phys Exam - Physical Examination Constitutional: NAD HEENT: PERRLA, moist MMs, sclera anicteric Neck: no JVD, supple Respiratory: no wheezing, no rales, no rhonchi Cardiovascular: RRR, no significant murmur, no rub Gastrointestinal: soft, non-tender, no distention, positive bowel sounds Musculoskeletal: no edema, pulses present Neurological: non-focal, normal sensation, moves all 4 limbs Lymphatic: no nodes Psychiatric: normal affect, A&O x 3 Skin: no rash, normal turgor Dx/Plan (1) Bilateral pulmonary embolism Code(s): I26.99 - OTHER PULMONARY EMBOLISM WITHOUT ACUTE COR PULMONALE Status : Acute (2) Swallowed foreign body Code(s): T18.9XXA - FOREIGN BODY OF ALIMENTARY TRACT, PART UNSP, INIT ENCNTR Status: Acute Comment: (3) Bipolar disorder Code(s): F31.9 - BIPOLAR DISORDER, UNSPECIFIED Status: Chronic (4) HIV (human immunodeficiency virus infection) Code(s): B20 - HUMAN IMMUNODEFICIENCY VIRUS [HIV] DISEASE Status: Chronic Comment: Continue anti-retroviral therapy (5) Hypertension Code(s): I10 - ESSENTIAL (PRIMARY) HYPERTENSION Status: Chronic Qualifiers: Comment: Continue outpt BP regimen - Plan cont current plan of care * will consult pulmonary for decision regarding anticoagulation therapy * will ask GI about anticoagulation * medication reviewed as below * symptomatic treatment. * still foreign body has not passed Review of Systems - Review of Systems Respiratory: Cough, Pleuritic Pain. negative: Dry, Shortness of Breath, Hemoptysis, SOB with Excertion, Sputum, Wheezing Cardiovascular: negative: chest pain, palpitations, orthopnea, paroxysmal nocturnal dyspnea, edema, light headedness, other Gastrointestinal: negative: Nausea, Vomiting, Abdominal Pain, Diarrhea, Constipation, Melena, Hematochezia, Other Genitourinary: negative: Dysuria, Frequency, Incontinence, Hematuria, Retention , Other Musculoskeletal: negative: Neck Pain, Shoulder Pain, Arm Pain, Back Pain, Hand Pain, Leg Pain, Foot Pain, Other Skin: negative: Rash, Lesions, [place], Bruising, Other - Medications/Allergies Allergies/Adverse Reactions: Allergies Allergy/AdvReac Type Severity Reaction Status Date / Time aspirin Allergy Verified 03/24/19 11:13 ketorolac [From Toradol] Allergy Verified 03/24/19 11:13 Medications: Current Medications Hydrocodone Bitart/Acetaminophen ([place] 5/325) 1 tab PO Q4H PRN PRN Reason: Moderate Pain (4-6) Amlodipine Besylate (Norvasc) 5 mg PO DAILY [facility] Last Admin: 03/25/19 09:55 Dose: 5 mg Artificial Tears (Tears Naturale) 2 drop EA EYE PRN PRN PRN Reason: Dry Eyes Bisacodyl (Dulcolax) [address] DAILYPRN PRN PRN Reason: Constipation Calcium Carbonate (Tums) 1,000 mg PO Q4H PRN PRN Reason: Heartburn or Indigestion Emtricitabine/Tenofovir (Truvada) 1 tab PO HS [facility] Guaifenesin (Robitussin Sf) 200 mg PO Q4H PRN PRN Reason: Cough Hydralazine HCl (Apresoline) 10 mg SLOW IVP Q4H PRN PRN Reason: SBP > 180 and HR < 70 Lamivudine (Epivir) 300 mg PO HS [place] Loperamide HCl (Imodium) 2 mg PO PRN PRN PRN Reason: Diarrhea/Loose Stools Loratadine (Claritin) 10 mg PO DAILYPRN PRN PRN Reason: Sinus Symptoms Ondansetron HCl (Zofran Odt) 4 mg PO Q6H PRN PRN Reason: Nausea/Vomiting Ondansetron HCl (Zofran) 4 mg IVP Q6H PRN PRN Reason: Nausea/Vomiting Pantoprazole Sodium (Protonix) 40 mg PO DAILY [facility] Last Admin: 03/25/19 09:55 Dose: 40 mg Prazosin HCl (Minipress) 2 mg PO HS [facility] Risperidone (Risperidone) 1 mg PO DAILY [facility] Last Admin: 03/25/19 09:55 Dose: 1 mg Senna/Docusate Sodium (Senokot S) 2 tab PO BID PRN PRN Reason: Constipation Sodium Chloride (Flush - Normal Saline) 10 ml IVF PRN PRN PRN Reason: Saline Flush Sodium Chloride ([place] Nasal [place] 0.65%) 0 ml EA NARE QIDPRN PRN PRN Reason: Nasal Congestion Spironolactone (Aldactone) 25 mg PO BID [facility] Last Admin: 03/25/19 09:55 Dose: 25 mg Throat Lozenges (Cepastat Lozenges) 1 jonah PO Q2H PRN PRN Reason: Sore Throat Tramadol HCl (Ultram) 50 mg PO Q6H PRN PRN Reason: Moderate Pain (4-6) Last Admin: 03/25/19 10:56 Dose: 50 mg Zolpidem Tartrate (Ambien) 5 mg PO HSPRN PRN PRN Reason: Insomnia
[2019-03-25] MEDS ORDERED: Enoxaparin Sodium 80 MG/0.8 ML SYRINGE SC SCH (12:45)
[2019-03-25] MEDS ORDERED: Enoxaparin Sodium 40 MG/0.4 ML SYRINGE SC SCH (12:45)
--- NOTE | 2019-03-25 17:55 | ULT ---
EXAM: Left lower extremity venous duplex ultrasound with color and spectral Doppler imaging: HISTORY: History of known pulmonary embolism COMPARISON: None FINDINGS: Exam performed from the groin to the ankle including the visualized greater saphenous, common femoral , superficial femoral, profunda femoral, popliteal, trifurcation, and posterior tibial veins. There is phasic flow with normal compressibility and normal augmentation at all examined levels. No evidence for intraluminal thrombus. IMPRESSION: No evidence for deep venous thrombosis.
[2019-03-25] MEDS: Mometasone/Formoterol 120 PUFF INHALER INH SCH (19:17)
[2019-03-25] MEDS: Emtricitabine/Tenofovir 200-300 MG TAB PO SCH (20:34)
[2019-03-25] MEDS: Prazosin HCl 1 MG CAP PO SCH (20:34)
--- NOTE | 2019-03-25 20:44 | CON ---
DATE OF CONSULTATION: HISTORY OF PRESENT ILLNESS: Rhonda Ambrocio is a 39-year-old gentleman with HIV at age 13 from the custodial system in [place], who apparently was brought into the hospital after he apparently swallowed bunch of screws. He said he was trying to vent some frustration. His KUB shows 5 screws in the abdomen. General Surgery was consulted. In fact, he was just recently discharged from the hospital on 03/20/2019 with similar problem, suicidal attempts, hematemesis. It is unclear what prompted this particular admission, but apparently had further abdominal pain. He was kind of frustrated. He started coughing and a CT chest angio was ordered, unclear why this was done, but CT angio showed evidence of small right lower lobe pulmonary emboli, left lower lobe pulmonary emboli in the subsegmental branches of unknown significance. He had asthma for most of his life he tells me. Denies any chest pain or chills. Denies any difficulty breathing. PAST MEDICAL HISTORY: Hypertension, HIV, foreign body, bipolar disorder. HOME MEDICATIONS: Includes tramadol, risperidone 1 mg, Lamivudine, Benadryl, spironolactone 25 b.i.d., Prazosin 2, omeprazole 20, Truvada 300, amlodipine 5. ALLERGIES: ASPIRIN. SOCIAL HISTORY: Former alcohol and tobacco abuse, none for 6 years. REVIEW OF SYSTEMS: Otherwise, 10-point negative. PHYSICAL EXAMINATION: VITAL SIGNS: Sats are 97 on room air, blood pressure 130/82, pulse 70, temperature 97. CHEST: No wheezing or crackles. CARDIAC: Normal S1 and S2. No gallops. ABDOMEN: No masses. LABORATORY DATA: White count is normal. Lytes are normal. IMPRESSION: 1. Pulmonary emboli, picked up on a CT chest ordered for coughing episode. 2. History of asthma. 3. History of human immunodeficiency virus. 4. Intentional screw swallowed with abdominal pain. I doubt the patient's pulmonary emboli is of any significant issues. This is an incidental pickup on his CT angio. Review ultrasound of his legs. I have switched him to low-dose Eliquis. PLAN: No further surgical intervention is planned. Consultation note, 70 minutes, 50% in direct patient care. Job ID: [id number]
[2019-03-25] MEDS ORDERED: Emtricitabine/Tenofovir 200-300 MG TAB PO SCH (21:00)
[2019-03-25] MEDS ORDERED: PRAZOSIN HCL 2 MG PO SCH (21:00)
[2019-03-26] MEDS: Mometasone/Formoterol 120 PUFF INHALER INH SCH ×2 (06:59→18:04)
--- NOTE | 2019-03-26 08:43 | RAD ---
1 VIEW ABDOMEN: Date: 03/26/19 HISTORY: Evaluate foreign body. COMPARISON: None. FINDINGS: Multiple screws, as well as a blade project over the right hemicolon. There is evidence of some inter vic passage of the screws. Continued surveillance is recommended. No pneumoperitoneum on this supine projection. Previously noted blade at the level of the rectum is no longer seen. IMPRESSION: Interval movement of some of the radiopaque foreign bodies. They are all now appear to be located in the ascending colon. POS: OFF
[2019-03-26] MEDS ORDERED: Apixaban 5 MG TAB PO SCH (09:00)
[2019-03-26] MEDS: risperiDONE 1 MG TAB PO SCH (09:08)
[2019-03-26] MEDS: Amlodipine 10 MG TAB PO SCH (09:09)
[2019-03-26] MEDS: Spironolactone 25 MG TAB PO SCH ×2 (09:09→22:04)
--- NOTE | 2019-03-26 09:09 | PRG ---
DATE OF SERVICE: 03/26/2019 SUBJECTIVE: Rhonda Ambrocio, this morning, is better. Still coughing. Still having some vague chest pain. OBJECTIVE: VITAL SIGNS: His saturations are 98% on room air, temperature 98, pulse 70, and respiratory rate 18. CHEST: Decreased breath sounds. No wheezing. CARDIAC: Normal S1 and S2. No gallops. ABDOMEN: No masses. IMPRESSION: 1. Status post cough, chest pain, abnormal CT angio suggestive of subsegmental pulmonary emboli, this is probably an over-read. His ultrasound of his legs is negative. I doubt he has significant pulmonary emboli. 2. Five screws in the abdomen. 3. Bipolar disorder. PLAN: I would stop his anticoagulation. Disposition as per Surgery regarding his screws. [place] for his asthmatic symptoms. Job ID: [id number]
--- NOTE | 2019-03-26 11:09 | PDOC.PN ---
- Subjective Encounter Start Date: 03/26/19 Encounter Start Time: 09:45 Patient seen and examined. No new complaints. No overnight events pt has mild cough and wheezing, today he has no BM yet - Objective Resuscitation Status - Order Detail: 03/25/19 07:59 Resuscitation Status Routine Resuscitation Status: FULL: Full Resuscitation MAR Reviewed: Yes Vital Signs & Weight: Vital Signs (12 hours) Temp Pulse Resp BP BP Pulse Ox 03/26/19 09:09 66 121/81 03/26/19 08:00 98.3 F 66 16 121/81 99 Weight Weight 173 lb 1 oz I&O: 03/25/19 03/26/19 03/27/19 06:59 06:59 06:59 Intake Total 480 1140 240 Balance 480 1140 240 Result Diagrams: 03/25/19 09:10 03/25/19 09:10 Radiology Reviewed by me: Yes (US leg negative for DVT) Phys Exam - Physical Examination Constitutional: NAD HEENT: PERRLA, moist MMs, sclera anicteric Neck: no JVD, supple Respiratory: no wheezing, no rales, no rhonchi Cardiovascular: RRR, no significant murmur, no rub Gastrointestinal: soft, non-tender, no distention, positive bowel sounds Musculoskeletal: no edema, pulses present Neurological: non-focal, normal sensation, moves all 4 limbs Lymphatic: no nodes Psychiatric: normal affect, A&O x 3 Skin: no rash, normal turgor Dx/Plan (1) Bilateral pulmonary embolism Code(s): I26.99 - OTHER PULMONARY EMBOLISM WITHOUT ACUTE COR PULMONALE Status : Acute Comment: spoke with DR Cespedes, per him radiology report is overreading, based on his evaluation, he does not have PE and he recommended to discontinue anticoagulation. (2) Swallowed foreign body Code(s): T18.9XXA - FOREIGN BODY OF ALIMENTARY TRACT, PART UNSP, INIT ENCNTR Status: Acute Comment: on congervative treatment, expecting to pass naturally , continue high fiber diet, I have provided patient counselling to avoid ingestion of foreign body (3) Bipolar disorder Code(s): F31.9 - BIPOLAR DISORDER, UNSPECIFIED Status: Chronic (4) HIV (human immunodeficiency virus infection) Code(s): B20 - HUMAN IMMUNODEFICIENCY VIRUS [HIV] DISEASE Status: Chronic Comment: Continue anti-retroviral therapy (5) Hypertension Code(s): I10 - ESSENTIAL (PRIMARY) HYPERTENSION Status: Chronic Qualifiers: Comment: Continue outpt BP regimen - Plan cont current plan of care * will DC anticoagulation as per pulmonary recommendation, pt is not reliable for this and anticoagulation would be at risk given his foreign material in his GI tract. * medication reviewed as below * symptomatic treatment * dulera added today Review of Systems - Review of Systems ENT: negative: Ear Pain, Ear Discharge, Nose Pain, Nose Discharge, Nose Congestion, Mouth Pain, Mouth Swelling, Throat Pain, Throat Swelling, Other Respiratory: Cough, Wheezing. negative: Dry, Shortness of Breath, Hemoptysis, SOB with Excertion, Pleuritic Pain, Sputum Cardiovascular: negative: chest pain, palpitations, orthopnea, paroxysmal nocturnal dyspnea, edema, light headedness, other Gastrointestinal: negative: Nausea, Vomiting, Abdominal Pain, Diarrhea, Constipation, Melena, Hematochezia, Other Genitourinary: negative: Dysuria, Frequency, Incontinence, Hematuria, Retention , Other Musculoskeletal: negative: Neck Pain, Shoulder Pain, Arm Pain, Back Pain, Hand Pain, Leg Pain, Foot Pain, Other - Medications/Allergies Allergies/Adverse Reactions: Allergies Allergy/AdvReac Type Severity Reaction Status Date / Time aspirin Allergy Verified 03/24/19 11:13 ketorolac [From Toradol] Allergy Verified 03/24/19 11:13 Medications: Current Medications Hydrocodone Bitart/Acetaminophen ([place] 5/325) 1 tab PO Q4H PRN PRN Reason: Moderate Pain (4-6) Amlodipine Besylate (Norvasc) 5 mg PO DAILY [facility] Last Admin: 03/26/19 09:09 Dose: 5 mg Artificial Tears (Tears Naturale) 2 drop EA EYE PRN PRN PRN Reason: Dry Eyes Bisacodyl (Dulcolax) 10 mg [place] DAILYPRN PRN PRN Reason: Constipation Calcium Carbonate (Tums) 1,000 mg PO Q4H PRN PRN Reason: Heartburn or Indigestion Emtricitabine/Tenofovir (Truvada) 1 tab PO [facility] Last Admin: 03/25/19 20:34 Dose: 1 tab Guaifenesin (Robitussin Sf) 200 mg PO Q4H PRN PRN Reason: Cough Hydralazine HCl (Apresoline) 10 mg SLOW IVP Q4H PRN PRN Reason: SBP > 180 and HR < 70 Lamivudine (Epivir) 300 mg PO [facility] Last Admin: 03/25/19 20:34 Dose: 300 mg Loperamide HCl (Imodium) 2 mg PO PRN PRN PRN Reason: Diarrhea/Loose Stools Loratadine (Claritin) 10 mg PO DAILYPRN PRN PRN Reason: Sinus Symptoms Mometasone Furoate/Formoterol Fumar (Dulera 200 Mcg/5 Mcg Inhaler) 2 puff INH BID-RT [facility] Last Admin: 03/26/19 06:59 Dose: 2 puff Ondansetron HCl (Zofran Odt) 4 mg PO Q6H PRN PRN Reason: Nausea/Vomiting Ondansetron HCl (Zofran) 4 mg IVP Q6H PRN PRN Reason: Nausea/Vomiting Pantoprazole Sodium (Protonix) 40 mg PO DAILY [facility] Last Admin: 03/26/19 09:08 Dose: 40 mg Prazosin HCl (Minipress) 2 mg PO [facility] Last Admin: 03/25/19 20:34 Dose: 2 mg Risperidone (Risperidone) 1 mg PO DAILY [facility] Last Admin: 03/26/19 09:08 Dose: 1 mg Senna/Docusate Sodium (Senokot S) 2 tab PO BID PRN PRN Reason: Constipation Sodium Chloride (Flush - Normal Saline) 10 ml IVF PRN PRN PRN Reason: Saline Flush Sodium Chloride ([place] Nasal [place] 0.65%) 0 ml EA NARE QIDPRN PRN PRN Reason: Nasal Congestion Spironolactone (Aldactone) 25 mg PO BID [facility] Last Admin: 03/26/19 09:09 Dose: 25 mg Throat Lozenges (Cepastat Lozenges) 1 jonah PO Q2H PRN PRN Reason: Sore Throat Tramadol HCl (Ultram) 50 mg PO Q6H PRN PRN Reason: Moderate Pain (4-6) Last Admin: 03/25/19 22:45 Dose: 50 mg Zolpidem Tartrate (Ambien) 5 mg PO HSPRN PRN PRN Reason: Insomnia
[2019-03-26] MEDS: traMADol HCl 50 MG TAB PO PRN ×2 (14:23→22:04)
[2019-03-26 14:57] LABS: #Eosinphils 0.2 thou/uL (0.0-0.7); #Lymphocytes 1.1 thou/uL (1.20-3.40); #Monocytes 0.5 thou/uL (0.11-0.59); #Neutrophils 2.6 thou/uL (1.40-6.50); %Basophils 0.7 % (0.0-1.0); %Lymphocytes 25.2 % (21.0-51.0); %Monocytes 10.9 % (0.0-10.0); %Neutrophils 58.3 % (42.0-75.0); Hemoglobin 13.2 g/dL (14.0-18.0); Mean Corpuscular HGB CONC 33.8 g/dL (32.0-36.0); Mean Corpuscular Hemoglobin 30.6 pg (27.0-31.0); Mean Corpuscular Volume 90.5 fL (78.0-98.0); Mean Platelet Volume 7.4 fL (7.4-10.4); Platelet Count 185 thou/uL (130-400); RBC Distribution Width 11.7 % (11.5-14.5); Red Blood Cell (RBC) Count 4.32 mill/uL (4.70-6.10); White Blood Cell (WBC) Count 4.5 thou/uL (4.8-10.8)
[2019-03-26] MEDS: Emtricitabine/Tenofovir 200-300 MG TAB PO SCH (22:04)
[2019-03-26] MEDS: Prazosin HCl 1 MG CAP PO SCH (22:04)
[2019-03-27] MEDS: traMADol HCl 50 MG TAB PO PRN ×3 (05:53→21:15)
[2019-03-27] MEDS: Mometasone/Formoterol 120 PUFF INHALER INH SCH ×2 (07:05→17:56)
[2019-03-27] MEDS: risperiDONE 1 MG TAB PO SCH (07:54)
[2019-03-27] MEDS: Amlodipine 10 MG TAB PO SCH (07:54)
[2019-03-27] MEDS: Spironolactone 25 MG TAB PO SCH ×2 (07:54→21:11)
--- NOTE | 2019-03-27 08:51 | PRG ---
DATE OF SERVICE: 03/25/2019 SUBJECTIVE: The patient is a 39-year-old male with a past history of swallowing metal foreign body in senior living. He was admitted with swallowing multiple nails. The patient explained that he is doing well today. Ambulating, yes. Nausea and vomiting, none. Pain, none. Fever, none. Having bowel movements, yes. Passing gas, no. He is tolerating regular diet OBJECTIVE: VITAL SIGNS: Current temperature 97 F, current heart rate 73, current blood pressure 130/70, current respiratory rate 18, current O2 sat 98, on room air. PHYSICAL EXAMINATION: GENERAL: Well-appearing and relaxed patient. HEENT: Normocephalic, atraumatic. CARDIOVASCULAR: Regular rate and rhythm. Clear S1/S2 heard. RESPIRATORY: No respiratory distress. LUNGS: Clear to auscultation bilaterally. ABDOMEN: Soft. Nontender. Nondistended. EXTREMITIES: Warm and well perfused. NEURO: Intact neurological. Oriented x3. LABORATORY DATA: WBC 4.5 K, hemoglobin 13.2, IMAGING RESULTS: No new imaging to be reviewed. ASSESSMENT: The patient is a 39-year-old male with a past history of swallowing metal foreign body who was admitted with another attempt swallowing multiple nails and blazers. Clinical workup currently is notable for the following, multiple nails visible on abdominal xray. Based upon the above, the overall assessment for this patient is the following, patient is stable, with no abdominal pain, WBC is stable. General surgical tay at this point is to follow up and detect any sign of bowel perforation for surgical decision making. PLAN: Follow up on abdominal pain, fever, abdominal xray and WBC Job ID: [id number] [facility]
--- NOTE | 2019-03-27 09:14 | PRG ---
DATE OF SERVICE: 03/27/2019 SUBJECTIVE: Rhonda Ambrocio is no longer short of breath. OBJECTIVE: VITAL SIGNS: Saturations are 100% on room air, respirations 16, temperature 97, pulse 73, blood pressure 130/73. CHEST: No wheezing or crackles. CARDIAC: Normal S1, S2. No gallops. ABDOMEN: Soft. No masses. IMPRESSION: Status post swallowing of 5 screws, abdominal pain, cough, asthma, abnormal lung scan //PE which in my mind is probably OVER read. I would discontinue all anticoagulation. Disposition as per Surgery. Call, if needed. Job ID: [id number] [facility]TDD
--- NOTE | 2019-03-27 11:45 | PDOC.PN ---
- Subjective Encounter Start Date: 03/27/19 Encounter Start Time: 07:30 pt has cough , no bleeding - Objective Resuscitation Status - Order Detail: 03/25/19 07:59 Resuscitation Status Routine Resuscitation Status: FULL: Full Resuscitation MAR Reviewed: Yes Vital Signs & Weight: Vital Signs (12 hours) Temp Pulse Resp BP BP Pulse Ox 03/27/19 08:00 97.6 F 73 18 130/73 100 03/27/19 07:54 69 109/75 03/27/19 07:05 69 16 03/27/19 04:00 97.5 F L 69 16 109/75 98 03/27/19 00:00 97.8 F 66 16 114/76 97 Weight Weight 173 lb 1 oz I&O: 03/26/19 03/27/19 03/28/19 06:59 06:59 06:59 Intake Total 1140 1730 Balance 1140 1730 Result Diagrams: 03/26/19 14:45 03/25/19 09:10 Phys Exam - Physical Examination Constitutional: NAD HEENT: PERRLA, moist MMs, sclera anicteric Neck: no JVD, supple Respiratory: no wheezing, no rales, no rhonchi, clear to auscultation bilateral Cardiovascular: RRR, no significant murmur, no rub Gastrointestinal: soft, non-tender, no distention, positive bowel sounds Musculoskeletal: no edema, pulses present Neurological: non-focal, normal sensation Lymphatic: no nodes Psychiatric: normal affect, A&O x 3 Skin: no rash, normal turgor Dx/Plan (1) Bilateral pulmonary embolism Code(s): I26.99 - OTHER PULMONARY EMBOLISM WITHOUT ACUTE COR PULMONALE Status : Acute Comment: spoke with DR Cespedes, per him radiology report is overreading, based on his evaluation, he does not have PE and he recommended to discontinue anticoagulation. (2) Swallowed foreign body Code(s): T18.9XXA - FOREIGN BODY OF ALIMENTARY TRACT, PART UNSP, INIT ENCNTR Status: Acute Comment: on congervative treatment, expecting to pass naturally , continue high fiber diet, I have provided patient counselling to avoid ingestion of foreign body (3) Bipolar disorder Code(s): F31.9 - BIPOLAR DISORDER, UNSPECIFIED Status: Chronic (4) HIV (human immunodeficiency virus infection) Code(s): B20 - HUMAN IMMUNODEFICIENCY VIRUS [HIV] DISEASE Status: Chronic Comment: Continue anti-retroviral therapy (5) Hypertension Code(s): I10 - ESSENTIAL (PRIMARY) HYPERTENSION Status: Chronic Qualifiers: Comment: Continue outpt BP regimen - Plan cont current plan of care * medication reviewed as below * symptomatic treatment * will dc later today if GI OK. Review of Systems - Review of Systems ENT: negative: Ear Pain, Ear Discharge, Nose Pain, Nose Discharge, Nose Congestion, Mouth Pain, Mouth Swelling, Throat Pain, Throat Swelling, Other Respiratory: negative: Cough, Dry, Shortness of Breath, Hemoptysis, SOB with Excertion, Pleuritic Pain, Sputum, Wheezing Cardiovascular: negative: chest pain, palpitations, orthopnea, paroxysmal nocturnal dyspnea, edema, light headedness, other Gastrointestinal: negative: Nausea, Vomiting, Abdominal Pain, Diarrhea, Constipation, Melena, Hematochezia, Other Genitourinary: negative: Dysuria, Frequency, Incontinence, Hematuria, Retention , Other Musculoskeletal: negative: Neck Pain, Shoulder Pain, Arm Pain, Back Pain, Hand Pain, Leg Pain, Foot Pain, Other - Medications/Allergies Allergies/Adverse Reactions: Allergies Allergy/AdvReac Type Severity Reaction Status Date / Time aspirin Allergy Verified 03/24/19 11:13 ketorolac [From Toradol] Allergy Verified 03/24/19 11:13 Medications: Current Medications Hydrocodone Bitart/Acetaminophen ([place] 5/325) 1 tab PO Q4H PRN PRN Reason: Moderate Pain (4-6) Amlodipine Besylate (Norvasc) 5 mg PO DAILY [facility] Last Admin: 03/27/19 07:54 Dose: 5 mg Artificial Tears (Tears Naturale) 2 drop EA EYE PRN PRN PRN Reason: Dry Eyes Bisacodyl (Dulcolax) 10 mg [place] DAILYPRN PRN PRN Reason: Constipation Calcium Carbonate (Tums) 1,000 mg PO Q4H PRN PRN Reason: Heartburn or Indigestion Emtricitabine/Tenofovir (Truvada) 1 tab PO HS [facility] Last Admin: 03/26/19 22:04 Dose: 1 tab Guaifenesin (Robitussin Sf) 200 mg PO Q4H PRN PRN Reason: Cough Hydralazine HCl (Apresoline) 10 mg SLOW IVP Q4H PRN PRN Reason: SBP > 180 and HR < 70 Lamivudine (Epivir) 300 mg PO [facility] Last Admin: 03/26/19 22:04 Dose: 300 mg Loperamide HCl (Imodium) 2 mg PO PRN PRN PRN Reason: Diarrhea/Loose Stools Loratadine (Claritin) 10 mg PO DAILYPRN PRN PRN Reason: Sinus Symptoms Mometasone Furoate/Formoterol Fumar (Dulera 200 Mcg/5 Mcg Inhaler) 2 puff INH BID-RT [facility] Last Admin: 03/27/19 07:05 Dose: 2 puff Ondansetron HCl (Zofran Odt) 4 mg PO Q6H PRN PRN Reason: Nausea/Vomiting Ondansetron HCl (Zofran) 4 mg IVP Q6H PRN PRN Reason: Nausea/Vomiting Pantoprazole Sodium (Protonix) 40 mg PO DAILY [facility] Last Admin: 03/27/19 07:54 Dose: 40 mg Prazosin HCl (Minipress) 2 mg PO [facility] Last Admin: 03/26/19 22:04 Dose: 2 mg Risperidone (Risperidone) 1 mg PO DAILY [facility] Last Admin: 03/27/19 07:54 Dose: 1 mg Senna/Docusate Sodium (Senokot S) 2 tab PO BID PRN PRN Reason: Constipation Sodium Chloride (Flush - Normal Saline) 10 ml IVF PRN PRN PRN Reason: Saline Flush Sodium Chloride ([place] Nasal [place] 0.65%) 0 ml EA NARE QIDPRN PRN PRN Reason: Nasal Congestion Spironolactone (Aldactone) 25 mg PO BID [facility] Last Admin: 03/27/19 07:54 Dose: 25 mg Throat Lozenges (Cepastat Lozenges) 1 jonah PO Q2H PRN PRN Reason: Sore Throat Tramadol HCl (Ultram) 50 mg PO Q6H PRN PRN Reason: Moderate Pain (4-6) Last Admin: 03/27/19 11:34 Dose: 50 mg Zolpidem Tartrate (Ambien) 5 mg PO HSPRN PRN PRN Reason: Insomnia
--- NOTE | 2019-03-27 13:11 | RAD ---
XR Abdomen 1 View/KUB History: Foreign body Comparison: Radiograph prior day Findings: Total of 5 nails in what appear to be 2 razor blades project over the right upper quadrant of the abdomen. Transit appears to be further along in the colon than the prior exam. Large volume stool within the ascending colon and transverse colon. Evaluation for free air is limite d without an upright exam. Impression: Mild further transit of the radiopaque foreign objects.
[2019-03-27] MEDS ORDERED: Magnesium Citrate 300 ML BOT PO SCH (14:15)
[2019-03-27] MEDS ORDERED: Clopidogrel Bisulfate 75 MG TAB ONE (19:50)
[2019-03-27] MEDS: Prazosin HCl 1 MG CAP PO SCH (21:11)
[2019-03-27] MEDS: Emtricitabine/Tenofovir 200-300 MG TAB PO SCH (21:11)
[2019-03-28] MEDS: traMADol HCl 50 MG TAB PO PRN (04:14)
[2019-03-28 06:32] LABS: #Basophils 0.1 thou/uL (0.0-0.2); #Eosinphils 0.3 thou/uL (0.0-0.7); #Lymphocytes 1.1 thou/uL (1.20-3.40); #Monocytes 0.6 thou/uL (0.11-0.59); #Neutrophils 2.6 thou/uL (1.40-6.50); %Basophils 2.6 % (0.0-1.0); %Eosinophils 5.4 % (0.0-10.0); %Lymphocytes 23.8 % (21.0-51.0); %Monocytes 13.1 % (0.0-10.0); %Neutrophils 55.1 % (42.0-75.0); Hemoglobin 12.6 g/dL (14.0-18.0); Mean Corpuscular HGB CONC 34.1 g/dL (32.0-36.0); Mean Corpuscular Volume 90.9 fL (78.0-98.0); Mean Platelet Volume 7.6 fL (7.4-10.4); Platelet Count 196 thou/uL (130-400); RBC Distribution Width 11.7 % (11.5-14.5); Red Blood Cell (RBC) Count 4.07 mill/uL (4.70-6.10); White Blood Cell (WBC) Count 4.7 thou/uL (4.8-10.8)
[2019-03-28 07:46] VITALS: BP 105/70; TEMP 97.7
[2019-03-28] MEDS: Mometasone/Formoterol 120 PUFF INHALER INH SCH (07:54)
[2019-03-28] MEDS: risperiDONE 1 MG TAB PO SCH (08:18)
[2019-03-28] MEDS: Spironolactone 25 MG TAB PO SCH (08:19)
[2019-03-28] MEDS: Amlodipine 10 MG TAB PO SCH (08:19)
--- NOTE | 2019-03-28 09:35 | RAD ---
SUPINE ABDOMEN: INDICATION: Foreign body followup. COMPARISON: Comparison is made to films of 03/27/2019 and 03/26/2019. FINDINGS: Three metallic nails now overlie the left upper quadrant, presumably within the colon at the region o f the splenic flexure. Two nails and a separate radiopaque foreign body overlie the right mid abdome n presumably within the right colon. IMPRESSION: Three of the nails appear to have progressed into the left upper abdomen, presumably within the regio n of the splenic flexure. Two nails and the apparent razorblade continue to reside in the right mid abdomen. POS: OFF
--- NOTE | 2019-03-28 11:38 | PDOC.PN ---
- Subjective Encounter Start Date: 03/28/19 Encounter Start Time: 10:30 -: old records requested/rev Patient seen and examined. No new complaints. No overnight events - Objective Resuscitation Status - Order Detail: 03/25/19 07:59 Resuscitation Status Routine Resuscitation Status: FULL: Full Resuscitation MAR Reviewed: Yes Vital Signs & Weight: Vital Signs (12 hours) Temp Pulse Resp BP BP Pulse Ox 03/28/19 08:19 64 105/70 03/28/19 07:45 97.7 F 64 20 105/70 99 03/28/19 04:00 97.8 F 77 18 104/92 H 97 03/28/19 00:00 98.0 F 97 18 108/71 97 Weight Weight 173 lb 1 oz I&O: 03/27/19 03/28/19 03/29/19 06:59 06:59 06:59 Intake Total 1730 Balance 1730 Result Diagrams: 03/28/19 05:58 03/25/19 09:10 Phys Exam - Physical Examination Constitutional: NAD HEENT: PERRLA, moist MMs, sclera anicteric Neck: no JVD, supple Respiratory: no wheezing, no rales, no rhonchi Cardiovascular: RRR, no significant murmur, no rub Gastrointestinal: soft, non-tender, no distention, positive bowel sounds Musculoskeletal: no edema, pulses present Neurological: non-focal, normal sensation Lymphatic: no nodes Psychiatric: normal affect, A&O x 3 Skin: no rash, normal turgor Dx/Plan (1) Swallowed foreign body Code(s): T18.9XXA - FOREIGN BODY OF ALIMENTARY TRACT, PART UNSP, INIT ENCNTR Status: Acute Comment: on congervative treatment, expecting to pass naturally , continue high fiber diet, I have provided patient counselling to avoid ingestion of foreign body (2) Bipolar disorder Code(s): F31.9 - BIPOLAR DISORDER, UNSPECIFIED Status: Chronic (3) HIV (human immunodeficiency virus infection) Code(s): B20 - HUMAN IMMUNODEFICIENCY VIRUS [HIV] DISEASE Status: Chronic Comment: Continue anti-retroviral therapy (4) Hypertension Code(s): I10 - ESSENTIAL (PRIMARY) HYPERTENSION Status: Chronic Qualifiers: Comment: Continue outpt BP regimen - Plan cont current plan of care * as per pulmonary pt does not have PE and no need of anticoagulant * will dc today * medication reviewed as below * symptomatic treatment * see discharge live. Review of Systems - Review of Systems ENT: negative: Ear Pain, Ear Discharge, Nose Pain, Nose Discharge, Nose Congestion, Mouth Pain, Mouth Swelling, Throat Pain, Throat Swelling, Other Respiratory: negative: Cough, Dry, Shortness of Breath, Hemoptysis, SOB with Excertion, Pleuritic Pain, Sputum, Wheezing Cardiovascular: negative: chest pain, palpitations, orthopnea, paroxysmal nocturnal dyspnea, edema, light headedness, other Gastrointestinal: negative: Nausea, Vomiting, Abdominal Pain, Diarrhea, Constipation, Melena, Hematochezia, Other Genitourinary: negative: Dysuria, Frequency, Incontinence, Hematuria, Retention , Other Musculoskeletal: negative: Neck Pain, Shoulder Pain, Arm Pain, Back Pain, Hand Pain, Leg Pain, Foot Pain, Other - Medications/Allergies Allergies/Adverse Reactions: Allergies Allergy/AdvReac Type Severity Reaction Status Date / Time aspirin Allergy Verified 03/24/19 11:13 ketorolac [From Toradol] Allergy Verified 03/24/19 11:13 Medications: Current Medications Hydrocodone Bitart/Acetaminophen ([place] 5/325) 1 tab PO Q4H PRN PRN Reason: Moderate Pain (4-6) Amlodipine Besylate (Norvasc) 5 mg PO DAILY REPLACED BY [facility] Last Admin: 03/28/19 08:19 Dose: 5 mg Artificial Tears (Tears Naturale) 2 drop EA EYE PRN PRN PRN Reason: Dry Eyes Bisacodyl (Dulcolax) 10 mg [place] DAILYPRN PRN PRN Reason: Constipation Calcium Carbonate (Tums) 1,000 mg PO Q4H PRN PRN Reason: Heartburn or Indigestion Emtricitabine/Tenofovir (Truvada) 1 tab PO HS REPLACED BY [facility] Last Admin: 03/27/19 21:11 Dose: 1 tab Guaifenesin (Robitussin Sf) 200 mg PO Q4H PRN PRN Reason: Cough Last Admin: 03/27/19 21:14 Dose: 200 mg Hydralazine HCl (Apresoline) 10 mg SLOW IVP Q4H PRN PRN Reason: SBP > 180 and HR < 70 Lamivudine (Epivir) 300 mg PO [facility] Last Admin: 03/27/19 21:11 Dose: 300 mg Loperamide HCl (Imodium) 2 mg PO PRN PRN PRN Reason: Diarrhea/Loose Stools Loratadine (Claritin) 10 mg PO DAILYPRN PRN PRN Reason: Sinus Symptoms Mometasone Furoate/Formoterol Fumar (Dulera 200 Mcg/5 Mcg Inhaler) 2 puff INH BID-RT REPLACED BY [facility] Last Admin: 03/28/19 07:54 Dose: 2 puff Ondansetron HCl (Zofran Odt) 4 mg PO Q6H PRN PRN Reason: Nausea/Vomiting Ondansetron HCl (Zofran) 4 mg IVP Q6H PRN PRN Reason: Nausea/Vomiting Pantoprazole Sodium (Protonix) 40 mg PO DAILY REPLACED BY [facility] Last Admin: 03/28/19 08:18 Dose: 40 mg Prazosin HCl (Minipress) 2 mg PO HS REPLACED BY [facility] Last Admin: 03/27/19 21:11 Dose: 2 mg Risperidone (Risperidone) 1 mg PO DAILY REPLACED BY [facility] Last Admin: 03/28/19 08:18 Dose: 1 mg Senna/Docusate Sodium (Senokot S) 2 tab PO BID PRN PRN Reason: Constipation Sodium Chloride (Flush - Normal Saline) 10 ml IVF PRN PRN PRN Reason: Saline Flush Sodium Chloride ([place] Nasal [place] 0.65%) 0 ml EA NARE QIDPRN PRN PRN Reason: Nasal Congestion Spironolactone (Aldactone) 25 mg PO BID REPLACED BY [facility] Last Admin: 03/28/19 08:19 Dose: 25 mg Throat Lozenges (Cepastat Lozenges) 1 jonah PO Q2H PRN PRN Reason: Sore Throat Tramadol HCl (Ultram) 50 mg PO Q6H PRN PRN Reason: Moderate Pain (4-6) Last Admin: 03/28/19 04:14 Dose: 50 mg Zolpidem Tartrate (Ambien) 5 mg PO HSPRN PRN PRN Reason: Insomnia
--- NOTE | 2019-03-28 12:46 | DIS ---
DATE OF ADMISSION: 03/24/2019 DATE OF DISCHARGE: 03/28/2019 PRIMARY CARE PHYSICIAN: [facility] Call admission. DISCHARGE DISPOSITION: Senior Living. PRIMARY DISCHARGE DIAGNOSIS: Swallowing of foreign body. SECONDARY DISCHARGE DIAGNOSES: Bipolar disorder, HIV, hypertension. PRIMARY PROCEDURE/OPERATION: None. RADIOLOGICAL INVESTIGATION: Abdomen and pelvis CT scan, CT angiography, abdomen x-ray, ultrasound of the lower extremity. SIGNIFICANT LABORATORY DATA: WBC 4.7, hemoglobin 12.6, platelet 196. INR 1.2. Creatinine 1.02. LFT normal. DISCHARGE MEDICATIONS: 1. Norvasc 5 mg p.o. daily. 2. Truvada 300 mg p.o. at bedtime. 3. Lamivudine 300 mg p.o. at bedtime. 4. Omeprazole 20 mg daily. 5. Prazosin 2 mg p.o. at bedtime. 6. Risperidone 1 mg p.o. daily. 7. Aldactone 25 mg b.i.d. 8. Ventolin HFA 2 puffs q.6 hourly p.r.n. 9. Doxycycline 100 mg p.o. b.i.d. for 7 days. 10. Qvar inhalation b.i.d. 11. Mucinex 600 mg p.o. b.i.d. for 7 days. 12. Tramadol 50 mg q.6 hourly p.r.n. CONTRAINDICATION: None. CODE STATUS: Full code. 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 Cespedes was consulted while in hospital. Dr. Toribio was consulted while in the hospital. Dr. Ezra Cummins was consulted while in the hospital. TEST RESULTS PENDING ON DISCHARGE: None. ALLERGIES: 1. ASPIRIN. 2. TORADOL. DISCHARGE PLAN: Posthospital, the patient is discharged back to senior living. Subsequently, he will follow up with primary care physician. HOSPITAL COURSE: A 39-year-old male who is from nursing home. He has underlying above-mentioned medical problem, who was recently admitted for irrigation of foreign body. During that admission, the patient underwent procedure. At this time, he also came to the hospital for ingestion of foreign body. 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 Both agreed that this patient does not need any intervention or procedure. They recommended high-fiber diet, which he was getting while in hospital. We treated him with stool softener as well. While in hospital, we also noted that he was having cough and shortness of breath and the patient had a CT abdomen and pelvis on admission that is suspected for pulmonary embolism that is why we did CT angiography, which showed bilateral subsegmental PE based on radiology report and ultrasound was negative for any DVT. We consulted Pulmonary for evaluation and for expert opinion, but based on Dr. Cespedes, the patient does not have any PE and he does not want to continue any anticoagulation therapy on this particular patient and that is why after starting anticoagulation therapy by me, which was discontinued per Dr. Cespedes's recommendation. At this point, Dr. Cespedes does not think the patient has pulmonary embolism and he wants to stop anticoagulation therapy which we did based on his recommendation. This patient may have underlying asthmatic bronchitis and that is why I prescribed albuterol inhaler and Qvar inhalation as well as doxycycline on discharge. He will continue all his previous medication. This patient has movement of foreign body toward rectum and he is completely asymptomatic. He does not have any complication and General Surgery and GI have no further intervention plan and that is why we are considering discharging him back to senior living. Necessary precaution with this foreign body discussed. The patient education about avoidance of ingesting any foreign material was done while in hospital. The patient is overall medically stable for discharge. Job ID: [id number]
== END 2019-03-28 16:46 | DRG 393 ==
LOC: ERS 00:34 → EEVIPCON 00:34 → T4-B 06:15 → ERHOLD 06:16 → 2NO 11:08 → T4-B 20:49
PROVIDERS: ADMIT Internal Medicine; ATTEND Internal Medicine
DX: T18.5XXA Foreign body in anus and rectum, initial encounter (principal); I26.99 Other pulmonary embolism without acute cor pulmonale; F31.9 Bipolar disorder, unspecified; F20.9 Schizophrenia, unspecified; K21.9 Gastro-esophageal reflux disease without esophagitis; Z21 Asymptomatic human immunodeficiency virus [HIV] infection status; J45.909 Unspecified asthma, uncomplicated; I10 Essential (primary) hypertension; Z88.8 Allergy status to other drugs, medicaments and biological substances
CPT/HCPCS: 36415; 71275; 74018; 74177; 80048; 80053; 85025; 85379; 85610; 85730; 86850; 86900; 86901; 90471; 90715; 93005; 93970; 96361; 96374; C9113; J0282; J1650; Q0162; Q9966